=== PATIENT | male | born 1975 | race African-American/Black ===

== ENCOUNTER 2017-06-19 05:13 | Emergency (ER) | payer OTHER ==
[2017-06-19 05:32] VITALS: BP 132/77; PULSE 50; TEMP 97.9; BMI 29.4
--- NOTE | 2017-06-19 06:01 | PDOC ---
History of Present Illness - General Chief Complaint: Chest Pain Stated Complaint: CHEST PAIN Time Seen by Provider: 06/19/17 05:34 - History of Present Illness Initial Comments: 06/19/17 06:00 CHIEF COMPLAINT: left shoulder/arm/chest pain HISTORY OF PRESENT ILLNESS: 41 yo M with no known PMH presents to ED with pain to left arm radiating to shoulder and left chest. 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 Over the next few days, he felt that the pain was extending towards his left chest. He states that the pain was worse when he was moving and "is better today but I have been telling myself I need to come here. I have an appointment with my primary on the , but this has just been bothering me so I wanted to get it checked out." Patient denies any shortness of breath, or palpitations. He reports that the pain feels "more like it's going from my left arm to my chest, not radiating from my chest to my arm." No recent travel or sick contacts. PAST MEDICAL HISTORY: Denies past medical history FAMILY HISTORY: grandmother - [place] SOCIAL HISTORY: Denies tobacco, alcohol, illicit drug use. SURGICAL HISTORY: Denies ALLERGIES: No known drug allergies REVIEW OF SYSTEMS General/Constitutional: Denies fever or chills. Denies weakness, weight change. HEENT: Denies change in vision. Denies ear pain or discharge. Denies sore throat. Cardiovascular: Denies chest pain or shortness of breath. Respiratory: Denies cough, wheezing, or hemoptysis. Gastrointestinal: Denies nausea, vomiting, diarrhea or constipation. Denies rectal bleeding. Genitourinary: Denies dysuria, frequency, or change in urination. Musculoskeletal: Pain to left shoulder and chest, worse with movement. Denies joint or muscle swelling or pain. Denies neck or back pain. Skin: Denies rash or easy bruising. PHYSICAL EXAM General Appearance: Well-appearing, appropriately dressed. No apparent distress , no intoxication. HEENT: EOMI, PERRLA, normal ENT inspection, normal voice, TMs normal, pharynx normal. No conjunctival pallor. No photophobia, scleral icterus. Neck: Supple. Trachea midline. No tenderness, rigidity, carotid bruit, stridor , lymphadenopathy, or thyromegaly. Respiratory/Chest: Lungs CTAB. Cardiovascular: RRR. S1, S2. Vascular Pulses: Dorsalis-Pedis (R): 2+, Dorsalis-Pedis (L): 2+ Musculoskeletal/Extremities: Normal inspection. FROM of all extremities, normal capillary refill. Pelvis Stable. No CVA tenderness. No tenderness to extremities, pedal edema, swelling, erythema or deformity. Integumentary: Appropriate color, dry, warm. 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 Fully oriented, alert. Appropriate mood/affect. Motor strength 5/5. No appreciable EOM palsy, facial droop or sensory deficit. Past History - Past Medical History Allergies/Adverse Reactions: Allergies Allergy/AdvReac Type Severity Reaction Status Date / Time No Known Allergies Allergy Verified 06/19/17 05:30 Home Medications: Ambulatory Orders Ibuprofen 600 mg PO TID #21 tablet 06/19/17 - Psycho/Social/Smoking Cessation Hx Suicidal Ideation: No Smoking History: Current every day smoker Have you smoked in the past 12 months: Yes Number of Cigarettes Smoked Daily: 10 Information on smoking cessation initiated: No Hx Alcohol Use: No Drug/Substance Use Hx: No *Physical Exam - Vital Signs Last Vital Signs Temp Pulse Resp BP Pulse Ox 97.9 F 50 L 14 132/77 96 06/19/17 05:30 06/19/17 05:30 06/19/17 05:30 06/19/17 05:30 06/19/17 05:30 Medical Decision Making - Medical Decision Making 06/19/17 06:10 41 yo M with no known PMH presents to ED with pain to left arm radiating to arm and left chest. -EKG, CXR EKG unremarkable, sinus bradycardia *DC/Admit/Observation/Transfer Diagnosis at time of Disposition: Arm pain, left - Discharge Dispostion Disposition: HOME Condition at time of disposition: Stable Admit: No - Prescriptions Prescriptions: Ibuprofen 600 mg PO TID #21 tablet - Patient Instructions Printed Discharge Instructions: DI for Arm Pain, DI for Shoulder Pain Additional Instructions: Please take medication as prescribed. As discussed, please keep your appointment with your primary care doctor on the . If you experience ANY new chest pain, shortness of breath, palpitations, difficulty breathing, pain radiating to your jaw, or any new or worsening symptoms, please return to the ER.
[2017-06-19] MEDS ORDERED: IBUPROFEN 400 MG TABLET (FP) PO ONE ×2 (06:10→06:21)
--- NOTE | 2017-06-19 06:19 | PDOC ---
*Physical Exam - Vital Signs Last Vital Signs Temp Pulse Resp BP Pulse Ox 97.9 F 50 L 14 132/77 96 06/19/17 05:30 06/19/17 05:30 06/19/17 05:30 06/19/17 05:30 06/19/17 05:30 Medical Decision Making - Medical Decision Making 06/19/17 06:19 agree with care from TIM Kaufman *DC/Admit/Observation/Transfer Diagnosis at time of Disposition: Arm pain, left - Prescriptions Prescriptions: Ibuprofen 600 mg PO TID #21 tablet - Patient Instructions Printed Discharge Instructions: DI for Shoulder Pain, DI for Arm Pain Additional Instructions: Please take medication as prescribed. As discussed, please keep your appointment with your primary care doctor on the . If you experience ANY new chest pain, shortness of breath, palpitations, difficulty breathing, pain radiating to your jaw, or any new or worsening symptoms, please return to the ER. - Post Discharge Activity Work/School Note: Back to Work
--- NOTE | 2017-06-19 12:18 | EKG ---
Test Reason : Blood Pressure : / mmHG Vent. Rate : 050 BPM Atrial Rate : 050 BPM P-R Int : 138 ms QRS Dur : 096 ms QT Int : 448 ms P-R-T Axes : 021 011 012 degrees QTc Int : 408 ms SINUS BRADYCARDIA OTHERWISE NORMAL ECG NO PREVIOUS ECGS AVAILABLE Confirmed by GONZALO JOHNSON MD ([id number]) on 06/19/2017 12:17:53 PM Referred By: Confirmed By:GONZALO JOHNSON MD
== END 2017-06-19 06:31 | disposition home or self-care (01) ==
LOC: JER 05:13
DX: M79.602 Pain in left arm (principal); F17.210 Nicotine dependence, cigarettes, uncomplicated
CPT/HCPCS: 71020-TC; 93005; 93010; 99283-25

== ENCOUNTER 2017-11-06 13:30 | Emergency (ER) | payer OTHER ==
[2017-11-06 13:35] VITALS: TEMP 97.6; BMI 29.5
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
[2017-11-06] MEDS ORDERED: morphine CARPU-JECT 2 MG/1 ML DISP.SYRIN IVPUSH ONE (15:12)
[2017-11-06] MEDS ORDERED: morphine CARPU-JECT 2 MG/1 ML DISP.SYRIN ONE (15:15)
[2017-11-06 15:47] LABS: URINE APPEARANCE CLEAR; URINE BILIRUBIN NEGATIVE (NEGATIVE); URINE BLOOD NEGATIVE (NEGATIVE); URINE COLOR LTYELLOW; URINE GLUCOSE (UA) NEGATIVE (NEGATIVE); URINE KETONE NEGATIVE (NEGATIVE); URINE LEUK ESTERASE NEGATIVE (NEGATIVE); URINE NITRITE NEGATIVE (NEGATIVE); URINE PROTEIN NEGATIVE (NEGATIVE); URINE UROBILINOGEN NEGATIVE mg/dL (0.2-1.0)
[2017-11-06 15:51] LABS: BASO % 0.5 % (0-2.0); EOS % 1.9 % (0-4.5); HEMATOCRIT 43.9 % (35.4-49); HEMOGLOBIN 15.3 GM/dL (11.7-16.9); LYMPH % 21.7 % (8-40); MCH 29.1 pg (25.7-33.7); MCHC 34.9 g/dl (32.0-35.9); MEAN CELL VOLUME 83.4 fl (80-96); MEAN PLT VOLUME 10.9 fl (7.5-11.1); MONO % 7.6 % (3.8-10.2); NEUT % 68.3 % (42.8-82.8); PLATELET COUNT 149 K/MM3 (134-434); RBC 5.26 M/mm3 (4.00-5.60); RDW 13.5 % (11.9-15.9); WHITE BLOOD COUNT 9.5 K/mm3 (4.0-10.0)
[2017-11-06 15:56] LABS: ALBUMIN 3.8 g/dl (3.4-5.0); ANION GAP 8 (8-16); BILIRUBIN,TOTAL 0.3 mg/dL (0.2-1.0); BLOOD UREA NITROGEN 18 mg/dL (7-18); CALCIUM 8.6 mg/dL (8.5-10.1); CHLORIDE 106 mmol/L (98-107); CO2 29 mmol/L (21-32); CREATININE 1.5 mg/dL (0.7-1.3); GLUCOSE,RANDOM 81 mg/dL (74-106); POTASSIUM 4.1 mmol/L (3.5-5.1); SGOT/AST 21 U/L (15-37); SGPT/ALT 35 U/L (12-78); SODIUM 143 mmol/L (136-145); TOT PROT 7.7 g/dl (6.4-8.2)
[2017-11-06 15:57] LABS: ALK PHOS 94 U/L (45-117)
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
[2017-11-06 17:12] VITALS: BP 117/59; PULSE 56
== END 2017-11-06 17:35 | disposition home or self-care (01) ==
LOC: JER 13:30
PROC: 3E033NZ Introduction of Analgesics, Hypnotics, Sedatives into Peripheral Vein, Percutaneous Approach (ICD-10-PCS; principal; 2017-11-06)
DX: S87.82XA Crushing injury of left lower leg, initial encounter (principal); V03.00XA Pedestrian on foot injured in collision with car, pick-up truck or van in nontraffic accident, initial encounter; Y92.481 Parking lot as the place of occurrence of the external cause; Y93.89 Activity, other specified; Y99.8 Other external cause status
CPT/HCPCS: 36415; 73590-TC-LT; 80053; 81003; 82550; 82553; 85025; 99283-25

== ENCOUNTER 2018-03-27 23:57 | Emergency (ER) | payer OTHER ==
[2018-03-28 01:42] VITALS: BP 114/78; PULSE 61; TEMP 98.7; BMI 29.5
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
[2018-03-28] MEDS ORDERED: diazePAM 5 MG TABLET PO ONE (02:00)
[2018-03-28] MEDS ORDERED: METOCLOPRAMIDE HCL INJECTION 10 MG/2 ML VIAL IVPUSH ONE (02:00)
[2018-03-28] MEDS ORDERED: ACETAMINOPHEN 325 MG TABLET (FP) PO ONE (02:00)
[2018-03-28] MEDS ORDERED: SODIUM CHLORIDE 1,000 ML IV STA (02:00)
[2018-03-28] MEDS ORDERED: diazePAM 5 MG TABLET ONE (02:19)
[2018-03-28] MEDS ORDERED: ACETAMINOPHEN 325 MG TABLET (FP) ONE (02:19)
[2018-03-28] MEDS ORDERED: METOCLOPRAMIDE HCL INJECTION 10 MG/2 ML VIAL ONE (02:19)
[2018-03-28 02:54] LABS: BASO % 0.5 % (0-2.0); HEMATOCRIT 41.1 % (35.4-49); HEMOGLOBIN 14.4 GM/dL (11.7-16.9); MCH 29.3 pg (25.7-33.7); MEAN CELL VOLUME 83.7 fl (80-96); MEAN PLT VOLUME 10.2 fl (7.5-11.1); MONO % 6.4 % (3.8-10.2); NEUT % 49.1 % (42.8-82.8); PLATELET COUNT 165 K/MM3 (134-434); RBC 4.91 M/mm3 (4.00-5.60); RDW 13.3 % (11.9-15.9)
[2018-03-28 03:18] LABS: ANION GAP 5 (8-16); BLOOD UREA NITROGEN 17 mg/dL (7-18); CALCIUM 8.4 mg/dL (8.5-10.1); CHLORIDE 107 mmol/L (98-107); CO2 29 mmol/L (21-32); CREATININE 1.3 mg/dL (0.7-1.3); GLUCOSE,RANDOM 85 mg/dL (74-106); SODIUM 141 mmol/L (136-145)
[2018-03-28 03:21] LABS: POTASSIUM 4.1 mmol/L (3.5-5.1)
--- NOTE | 2018-03-28 04:17 | PDOC ---
*Physical Exam - Vital Signs Last Vital Signs Temp Pulse Resp BP Pulse Ox 98.7 F 61 18 114/78 99 03/28/18 01:37 03/28/18 01:37 03/28/18 01:37 03/28/18 01:37 03/28/18 01:37 ED Treatment Course - LABORATORY CBC & Chemistry Diagram: 03/28/18 02:40 03/28/18 02:40 - ADDITIONAL ORDERS Additional order review: Laboratory Results 03/28/18 02:40 Sodium 141 Potassium 4.1 Chloride 107 Carbon Dioxide 29 Anion Gap 5 L BUN 17 Creatinine 1.3 Creat Clearance w eGFR 59.97 Random Glucose 85 Calcium 8.4 L 03/28/18 02:40 RBC 4.91 MCV 83.7 MCHC 35.0 RDW 13.3 MPV 10.2 Neutrophils % 49.1 D Lymphocytes % 40.0 D Monocytes % 6.4 Eosinophils % 4.0 D Basophils % 0.5 - Medications Given in the ED: ED Medications Discontinued Medications Generic Name Dose Route Start Last Admin Trade Name Richardq PRN Reason Stop Dose Admin Acetaminophen 650 mg 03/28/18 02:00 03/28/18 02:33 Tylenol - PO 03/28/18 02:01 650 mg ONCE ONE Administration Diazepam 5 mg 03/28/18 02:00 03/28/18 02:33 Valium - PO 03/28/18 02:01 5 mg ONCE ONE Administration Sodium Chloride 1,000 mls @ 1,000 mls/hr 03/28/18 02:00 03/28/18 02:33 Normal Saline - IV 03/28/18 02:59 1,000 mls/hr ASDIR STA Administration Metoclopramide HCl 10 mg 03/28/18 02:00 03/28/18 02:33 Reglan Injection - IVPUSH 03/28/18 02:01 10 mg ONCE ONE Administration Medical Decision Making - Medical Decision Making 03/28/18 03:59 I received this patient on sign out He presented to the ER with a complaint of occipital headache which radiated to the jaw 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, 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, 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 fever or chills Laboratory Tests 03/28/18 03/28/18 02:40 02:40 WBC 8.0 Hgb 14.4 Hct 41.1 Plt Count 165 Neutrophils % 49.1 D Lymphocytes % 40.0 D Sodium 141 Potassium 4.1 Chloride 107 Carbon Dioxide 29 BUN 17 Creatinine 1.3 Random Glucose 85 03/28/18 04:17 Pt sleeping soundly when awoken, pt states that he feels much better Headache resolved Will discharge to home Follow up with PMD within 2-3 days Clinical Impression: tension type headache, initial presentation *DC/Admit/Observation/Transfer Diagnosis at time of Disposition: Headache Qualifiers: Headache type: tension-type Headache chronicity pattern: unspecified pattern Intractability: not intractable Qualified Code(s): G44.209 - Tension-type headache, unspecified, not intractable - Discharge Dispostion Disposition: HOME Condition at time of disposition: Stable Decision to Admit order: No - Referrals - Patient Instructions Printed Discharge Instructions: DI for Headache, Tension Headache, Tension Headache (Alternative Therapy) Additional Instructions: Mr Menon Thank you for coming in to the ER today Please be sure to follow up with your primary care physician within 2-3 days Please use motrin if needed for mild pain For more severe pain, please take Excedrin Migraine according to the power and recovery supervisor's recommendation Monitor for fevers or chills or any other concerning symptoms If you have any concerns or complaints, please return to the ER for re evaluation - Post Discharge Activity
== END 2018-03-28 04:49 | disposition home or self-care (01) ==
LOC: JER 23:57
PROC: 3E033GC Introduction of Other Therapeutic Substance into Peripheral Vein, Percutaneous Approach (ICD-10-PCS; principal; 2018-03-27)
DX: G44.209 Tension-type headache, unspecified, not intractable (principal)
CPT/HCPCS: 36415; 80048; 85025; 99281-25; J7030

== ENCOUNTER 2018-04-10 15:27 | Emergency (ER) | payer SELFPAY ==
[2018-04-10 15:46] VITALS: BP 139/75; PULSE 71; TEMP 101.6; BMI 28.7
--- NOTE | 2018-04-10 15:46 | PDOC ---
Rapid Medical Evaluation Time Seen by Provider: 04/10/18 15:41 Medical Evaluation: Allergies Allergy/AdvReac Type Severity Reaction Status Date / Time No Known Allergies Allergy Verified 03/28/18 01:39 I have performed a brief in-person evaluation of this patient. The patient presents with a chief complaint of: Cough, SOB x 3 days. No orthopnea Pertinent physical exam findings: fever I have ordered the following: tylenol, CXR The patient will proceed to the ED for further evaluation. Discharge Disposition - Diagnosis Cough, Fever - Referrals - Patient Instructions - Post Discharge Activity
[2018-04-10] MEDS ORDERED: ACETAMINOPHEN 325 MG TABLET (FP) PO ONE (15:47)
--- NOTE | 2018-04-10 16:09 | PDOC ---
History of Present Illness - General Chief Complaint: Respiratory Stated Complaint: SOB Time Seen by Provider: 04/10/18 15:41 History Source: Patient Exam Limitations: No Limitations - History of Present Illness Initial Comments: 04/10/18 16:39 Patient came for evaluation of persistent cough with white thick phlegm. States had fever over the past few days with MAXIMUM TEMPERATURE today of 102. States has become short of breath with exertion past 2 days with exacerbating cough. Timing/Duration: reports: constant, getting worse Associated Symptoms: reports: chest pain/soreness, cough, fever/chills, lightheadedness, nasal congestion Past History - Travel Traveled outside of the country in the last 30 days: No Close contact w/someone who was outside of country & ill: No - Past Medical History Allergies/Adverse Reactions: Allergies Allergy/AdvReac Type Severity Reaction Status Date / Time No Known Allergies Allergy Verified 04/10/18 15:41 Home Medications: Ambulatory Orders Azithromycin [Zithromax -] 250 mg PO UTDICT #6 tab 04/10/18 COPD: No Other medical history: DENIES. - Immunization History Immunization Up to Date: Yes - Suicide/Smoking/Psychosocial Hx Smoking History: Current every day smoker Have you smoked in the past 12 months: Yes Number of Cigarettes Smoked Daily: 8 Information on smoking cessation initiated: No Hx Alcohol Use: Yes Drug/Substance Use Hx: No Substance Use Type: None Review of Systems - Review of Systems Able to Perform ROS?: Yes Is the patient limited Urdu proficient: Yes Constitutional: Yes: Symptoms Reported, See HPI, Malaise Respiratory: Yes: Symptoms reported, See HPI, Cough, Orthopnea. No: Wheezing Cardiac (ROS): No: Symptoms Reported Musculoskeletal: Yes: Symptoms Reported, See HPI, Muscle Weakness All Other Systems: Reviewed and Negative *Physical Exam - Vital Signs Last Vital Signs Temp Pulse Resp BP Pulse Ox 101.6 F H 71 19 139/75 96 04/10/18 15:41 04/10/18 15:41 04/10/18 15:41 04/10/18 15:41 04/10/18 15:41 - Physical Exam General Appearance: Yes: Nourished, Appropriately Dressed, Apparent Distress, Mild Distress HEENT: positive: RAE, TMs Normal, Pharynx Normal, Rhinorrhea Neck: positive: Supple. negative: Tender, Lymphadenopathy (R), Lymphadenopathy (L) Respiratory/Chest: positive: Lungs Clear (course but clear, no wheezing or retractions noted), Normal Breath Sounds Gastrointestinal/Abdominal: positive: Soft. negative: Tender Musculoskeletal: positive: Normal Inspection. 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 We'll treat with Zithromax for bronchitis and palpation follow-up with PMD on Friday *DC/Admit/Observation/Transfer Diagnosis at time of Disposition: Bronchitis - Discharge Dispostion Disposition: HOME Condition at time of disposition: Stable Decision to Admit order: No - Prescriptions Prescriptions: Azithromycin [Zithromax -] 250 mg PO UTDICT #6 tab - Referrals - Patient Instructions Printed Discharge Instructions: DI for Acute Bronchitis Additional Instructions: Rest, drink lots of fluids: Teas, water, soups, Pedialyte Saltwater gargles Steamy showers/seem to face break up mucus Avoid contact with others until fevers and cough resolved Lots of handwashing and good hygiene Continue [id number] medications for symptomatic relief Tylenol or Motrin for fever and pain Azithromycin as directed Followup with private physician in one to 2 days as needed Return to emergency department for worsened symptoms, fevers, dehydration - Post Discharge Activity
--- NOTE | 2018-04-20 15:06 | EKG ---
Test Reason : Blood Pressure : / mmHG Vent. Rate : 058 BPM Atrial Rate : 058 BPM P-R Int : 148 ms QRS Dur : 092 ms QT Int : 428 ms P-R-T Axes : -17 011 014 degrees QTc Int : 420 ms SINUS BRADYCARDIA NORMAL ECG WHEN COMPARED WITH ECG OF 10-APR-2018 23:18, NO SIGNIFICANT CHANGE WAS FOUND Confirmed by GLORIA LEMON MD ([id number]) on 04/20/2018 3:05:27 PM Referred By: Confirmed By:GLORIA LEMON MD
== END 2018-04-10 16:48 | disposition home or self-care (01) ==
LOC: JERFT 15:27
DX: J20.9 Acute bronchitis, unspecified (principal); F17.210 Nicotine dependence, cigarettes, uncomplicated
CPT/HCPCS: 71045-TC-FY; 93005; 93010; 99281-25

== ENCOUNTER 2018-05-02 10:38 | Observation (INO) | payer MEDICARE ==
--- NOTE | 2018-05-02 13:16 | PDOC ---
Attending Attestation - Resident Resident Name: Estuardo Rosales - ED Attending Attestation I have performed the following: I have examined & evaluated the patient, The case was reviewed & discussed with the resident, I agree w/resident's findings & plan, Exceptions are as noted - HPI HPI: 05/02/18 13:14 42y M hx of arhtorscopy last in january,, presents with L foot and ankle swelling/pain since this morning. Pt states he intermittently has swelling in his L foot, but it was worse than usual today. He denies any trauma, falls, leg pain, sob, cough, hemopsysis, chest pain, fever/chills. on exam pt in no distress LLE: +pitting edema to lewis /foot, neg homans, no calf tenderness ABD: soft, nontender pulm: no distress, speaking complete sentences, no wheezing/rales card: rrr, no m/r/g suspect post traumatic edema will r/o dvt with US will obtai blood work to r/o amado, liver failure anticipate dc with pmd fu if his US is negative with supportive care/elevation - Physicial Exam PE: 05/03/18 09:23 see above - Medical Decision Making 05/02/18 17:50 pts labs noted with cr at 1.4, aboe his last one that was 1.1 at discharge pts DVT study was positive will start pt on eliquis will hydrate to ensure his renal function returns to baseline 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 Admitting physician has assumed care for the patient, will follow all pending diagnostics and will complete the evaluation and treatment.
--- NOTE | 2018-05-02 13:23 | PDOC ---
History of Present Illness - General Chief Complaint: Edema Stated Complaint: LT SWOLLEN LEG Time Seen by Provider: 05/02/18 11:17 History Source: Patient Exam Limitations: No Limitations - History of Present Illness Initial Comments: 05/02/18 13:18 42 yo male pmh significant for 2 arthroscopys (most recent one in January) and a recent inpatient hospital stay for pneumonia 3 weeks ago presents to ED for left foot and ankle swelling. Patient states he had to wear a slipper on the the left foot due to how swollen it was. Patient took 800mg of Ibuprofen has had improvement in his pain. Currently no pain in the foot. He denies any history of trauma to the foot and denies f/c/n/v, weakness or sensory changes unilaterally, chest pain, SOB or abdominal pain. Past History - Past Medical History Allergies/Adverse Reactions: Allergies Allergy/AdvReac Type Severity Reaction Status Date / Time No Known Allergies Allergy Verified 05/02/18 11:03 Home Medications: Ambulatory Orders Ibuprofen 1,600 mg PO PRN 05/02/18 COPD: No - Immunization History Immunization Up to Date: Yes - Suicide/Smoking/Psychosocial Hx Smoking History: Former smoker Have you smoked in the past 12 months: Yes Number of Cigarettes Smoked Daily: 8 If you are a former smoker, when did you quit?: 03/2018 Information on smoking cessation initiated: No Hx Alcohol Use: No Drug/Substance Use Hx: No Substance Use Type: None Review of Systems - Review of Systems Able to Perform ROS?: Yes Constitutional: No: Chills, Diaphoresis, Fever, Weakness Respiratory: No: Shortness of Breath, SOB with Exertion, SOB at Rest, Wheezing, Productive cough Cardiac (ROS): No: Chest Pain, Irregular Heart Rate, Lightheadedness, Palpitations, Chest Tightness ABD/GI: No: Abdominal Distended, Constipated, Diarrhea, Nausea, Vomiting Musculoskeletal: Yes: Joint Swelling (left ankle and foot) Integumentary: No: Bruising, Change in Color, Erythema, Lesions *Physical Exam - Vital Signs Last Vital Signs Temp Pulse Resp BP Pulse Ox 98.7 F 57 L 16 147/78 97 05/02/18 11:03 05/02/18 11:03 05/02/18 11:03 05/02/18 11:03 05/02/18 11:03 - Physical Exam General Appearance: Yes: Appropriately Dressed. No: Apparent Distress HEENT: positive: EOMI Neck: negative: Tender, Carotid bruit Respiratory/Chest: positive: Lungs Clear, Normal Breath Sounds. negative: Chest Tender, Respiratory Distress, Accessory Muscle Use, Decreased Breath Sounds, Crackles, Rales, Rhonchi, Stridor, Wheezing Cardiovascular: positive: Regular Rhythm, Regular Rate, S1, S2, Edema (left lower leg and foot pitting). negative: JVD, Murmur, Tachycardia Vascular Pulses: Dorsalis-Pedis (R): 4+, Doralis-Pedis (L): 4+ Gastrointestinal/Abdominal: positive: Normal Bowel Sounds. negative: Pulsatile Mass, Distended, Guarding, Rebound, Tenderness Musculoskeletal: negative: Muscle Spasm Extremity: positive: Normal Capillary Refill, Pedal Edema (left lower leg and foot). negative: Tender, Cyanosis, Calf Tenderness, Erythema Integumentary: positive: Normal Color, Dry, Warm. negative: Erythema, Diaphoresis Neurologic: positive: pharmacy ancillary II-XII NML intact, Fully Oriented, Alert, Normal Mood/ Affect, Normal Response, Motor Strength 02/14 ED Treatment Course - LABORATORY CBC & Chemistry Diagram: 05/02/18 13:45 05/02/18 13:45 - RADIOLOGY Radiology Studies Ordered: Category Date Time Status ANKLE & FOOT-LEFT* [RAD] Stat Radiology 05/02/18 13:13 Ordered Medical Decision Making - Medical Decision Making 05/02/18 14:02 42 yo male pmh of 2 knee arthroscopys and a recent admission for pneumonia presents to the ED for left lower leg and foot swelling. Patient admits to having mild swelling yesterday but this morning it became severe. He denies CP, SOB or calf tenderness. On exam, 2+ pitting edema in the left lower leg and foot with a negative homans sign. Left lower leg noticeably more swollen than the right. No redness, warmth or induration. Rule out DVT with duplex 05/02/18 17:40 Doppler positive for DVT distal to the left superficial femoral vein with minimal flow distal of the pop vein. Concerns for starting Eliquis due to bump in creatinine from 1.1 to 1.4 Admit to Obs for dehydration/ASIM/DVT and start Eliquis *DC/Admit/Observation/Transfer Diagnosis at time of Disposition: DVT (deep venous thrombosis) Qualifiers: DVT location: lower extremity Affected thrombotic vein of extremity: femoral Chronicity: acute Laterality: left Qualified Code(s): I82.412 - Acute embolism and thrombosis of left femoral vein - Discharge Dispostion Condition at time of disposition: Stable Decision to Admit order: Yes - Referrals - Patient Instructions - Post Discharge Activity
[2018-05-02 14:00] LABS: BASO % 0.7 % (0-2.0); EOS % 3.5 % (0-4.5); HEMATOCRIT 41.3 % (35.4-49); HEMOGLOBIN 14.5 GM/dL (11.7-16.9); LYMPH % 33.7 % (8-40); MCH 29.4 pg (25.7-33.7); MCHC 35.2 g/dl (32.0-35.9); MEAN CELL VOLUME 83.7 fl (80-96); MEAN PLT VOLUME 9.4 fl (7.5-11.1); MONO % 6.4 % (3.8-10.2); NEUT % 55.7 % (42.8-82.8); PLATELET COUNT 203 K/MM3 (134-434); RBC 4.93 M/mm3 (4.00-5.60); RDW 13.9 % (11.9-15.9); WHITE BLOOD COUNT 7.2 K/mm3 (4.0-10.0)
[2018-05-02 14:30] LABS: ALBUMIN 3.6 g/dl (3.4-5.0); ANION GAP 4 (8-16); BILIRUBIN,TOTAL 0.5 mg/dL (0.2-1.0); BLOOD UREA NITROGEN 13 mg/dL (7-18); CALCIUM 8.6 mg/dL (8.5-10.1); CHLORIDE 108 mmol/L (98-107); CO2 30 mmol/L (21-32); CREATININE 1.4 mg/dL (0.7-1.3); GLUCOSE,RANDOM 76 mg/dL (74-106); POTASSIUM 4.2 mmol/L (3.5-5.1); SGOT/AST 21 U/L (15-37); SGPT/ALT 30 U/L (12-78); SODIUM 142 mmol/L (136-145); TOT PROT 7.1 g/dl (6.4-8.2)
[2018-05-02 14:31] LABS: ALK PHOS 85 U/L (45-117)
[2018-05-02] MEDS ORDERED: SODIUM CHLORIDE 1,000 ML IV STA (17:50)
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
[2018-05-02] MEDS ORDERED: SODIUM CHLORIDE 1,000 ML IV SCH (18:30)
[2018-05-02] MEDS ORDERED: APIXABAN 5 MG TABLET PO SCH (22:00)
[2018-05-02] MEDS: APIXABAN 5 MG TABLET PO SCH (22:19)
[2018-05-03 00:29] LABS: URINE APPEARANCE CLEAR; URINE BILIRUBIN NEGATIVE (<2.0 mg/dL); URINE COLOR STRAW; URINE GLUCOSE (UA) NEGATIVE (NEGATIVE); URINE KETONE NEGATIVE (NEGATIVE); URINE LEUK ESTERASE NEGATIVE (NEGATIVE); URINE NITRITE NEGATIVE (NEGATIVE); URINE PROTEIN NEGATIVE (NEGATIVE); URINE UROBILINOGEN NEGATIVE mg/dL (0.2-1.0)
[2018-05-03 04:16] VITALS: BMI 30.1
[2018-05-03 08:00] LABS: EOS % 3.4 % (0-4.5); HEMATOCRIT 40.9 % (35.4-49); HEMOGLOBIN 14.2 GM/dL (11.7-16.9); LYMPH % 35.5 % (8-40); MCH 29.4 pg (25.7-33.7); MCHC 34.8 g/dl (32.0-35.9); MEAN CELL VOLUME 84.6 fl (80-96); MEAN PLT VOLUME 10.2 fl (7.5-11.1); MONO % 6.1 % (3.8-10.2); PLATELET COUNT 175 K/MM3 (134-434); RBC 4.84 M/mm3 (4.00-5.60); RDW 13.7 % (11.9-15.9); WHITE BLOOD COUNT 6.8 K/mm3 (4.0-10.0)
[2018-05-03] MEDS: APIXABAN 5 MG TABLET PO SCH (10:41)
[2018-05-03 12:02] LABS: ALBUMIN 3.2 g/dl (3.4-5.0); ANION GAP 8 (8-16); BLOOD UREA NITROGEN 9 mg/dL (7-18); CALCIUM 8.4 mg/dL (8.5-10.1); CHLORIDE 108 mmol/L (98-107); CO2 25 mmol/L (21-32); GLUCOSE,RANDOM 78 mg/dL (74-106); POTASSIUM 4.2 mmol/L (3.5-5.1); SODIUM 141 mmol/L (136-145)
[2018-05-03 12:07] LABS: ALK PHOS 74 U/L (45-117); BILIRUBIN,TOTAL 0.7 mg/dL (0.2-1.0); CREATININE 1.2 mg/dL (0.7-1.3); SGOT/AST 19 U/L (15-37); SGPT/ALT 26 U/L (12-78); TOT PROT 6.5 g/dl (6.4-8.2)
[2018-05-03 13:52] VITALS: BP 120/66; PULSE 50; TEMP 98.9
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
== END 2018-05-03 14:51 | disposition home or self-care (01) ==
LOC: JER 10:38 → JERBED 17:54 → J8W 21:49
PROVIDERS: ADMIT Hospitalist; ATTEND Nurse Practitioner Acute Care
PROC: 3E0337Z Introduction of Electrolytic and Water Balance Substance into Peripheral Vein, Percutaneous Approach (ICD-10-PCS; principal; 2018-05-02)
DX: I82.412 Acute embolism and thrombosis of left femoral vein (principal); N17.9 Acute kidney failure, unspecified; Z87.891 Personal history of nicotine dependence
CPT/HCPCS: 36415; 80053; 81003; 85025; 93971-TC; 96360; 99284-25; G0378; J7030

== ENCOUNTER 2018-06-07 20:23 | Emergency (ER) | payer OTHER ==
[2018-06-07 20:34] VITALS: TEMP 98.7; BMI 28.7
--- NOTE | 2018-06-07 21:40 | PDOC ---
History of Present Illness - General Chief Complaint: Edema Stated Complaint: SWOLLEN LEG - History of Present Illness Initial Comments: 42-year-old male presents for evaluation of atraumatic left lower leg swelling 2 days. He states he was on Elkus for a DVT in the left lower extremity finished 3 out of 4 week course of it never got refills and his leg began to swell again. Incidentally he is on antibiotics for a tooth infection he has no other comorbidities. 06/07/18 21:39 Past History - Past Medical History Allergies/Adverse Reactions: Allergies Allergy/AdvReac Type Severity Reaction Status Date / Time No Known Allergies Allergy Verified 06/07/18 20:31 Home Medications: Ambulatory Orders Amoxicillin - [Amoxicillin 500mg Capsule -] 500 mg PO TID 06/07/18 COPD: No Other medical history: DVT - Immunization History Immunization Up to Date: Yes - Suicide/Smoking/Psychosocial Hx Smoking History: Former smoker Have you smoked in the past 12 months: Yes Number of Cigarettes Smoked Daily: 8 If you are a former smoker, when did you quit?: 03/2018 Information on smoking cessation initiated: No Hx Alcohol Use: No Drug/Substance Use Hx: Yes Substance Use Type: None Review of Systems - Review of Systems Musculoskeletal: Yes: See HPI *Physical Exam - Vital Signs Last Vital Signs Temp Pulse Resp BP Pulse Ox 98.7 F 53 L 18 111/67 97 06/07/18 20:32 06/07/18 20:32 06/07/18 20:32 06/07/18 20:32 06/07/18 20:32 - Physical Exam Comments: Left lower leg skin color and temperature are normal there is 1-2+ pitting edema about the anterior left lower leg the thigh and calf there soft and nontender there are no gross sensorimotor deficits neurovascularly intact 06/07/18 21:39 ED Treatment Course - RADIOLOGY Radiology Studies Ordered: Category Date Time Status LOWER EXT ART DOPP/PVR [VASC] Stat Vascular 06/07/18 21:38 Ordered Medical Decision Making - Medical Decision Making 42-year-old male with a history of a DVT he did not complete a course of L quest as he was prescribed, color Doppler today to evaluate him for DVT 06/07/18 21:40 06/07/18 22:15 + DVT as per US hematology called 06/07/18 22:24 DIscussed with hematology in consult, and 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 Preliminalry lab work ordered, pt sent to main ER. *DC/Admit/Observation/Transfer Diagnosis at time of Disposition: DVT (deep venous thrombosis) - Referrals - Patient Instructions - Post Discharge Activity
[2018-06-07] MEDS ORDERED: ENOXAPARIN NA (PORCINE) 40 MG/0.4 ML DISP.SYRIN SQ ONE ×2 (22:29→22:47)
[2018-06-07 22:50] LABS: BASO % 0.6 % (0-2.0); EOS % 4.1 % (0-4.5); HEMATOCRIT 40.7 % (35.4-49); LYMPH % 38.5 % (8-40); MCH 29.1 pg (25.7-33.7); MCHC 34.5 g/dl (32.0-35.9); MEAN CELL VOLUME 84.4 fl (80-96); MEAN PLT VOLUME 10.2 fl (7.5-11.1); MONO % 7.5 % (3.8-10.2); NEUT % 49.3 % (42.8-82.8); PLATELET COUNT 170 K/MM3 (134-434); RBC 4.83 M/mm3 (4.00-5.60); RDW 13.9 % (11.9-15.9); WHITE BLOOD COUNT 8.2 K/mm3 (4.0-10.0)
[2018-06-07 23:03] LABS: INR 1.15 (0.83-1.09)
[2018-06-07 23:11] LABS: ALBUMIN 3.8 g/dl (3.4-5.0); ANION GAP 6 MMOL/L (8-16); BILIRUBIN,TOTAL 0.3 mg/dL (0.2-1.0); BLOOD UREA NITROGEN 17 mg/dL (7-18); CALCIUM 8.7 mg/dL (8.5-10.1); CHLORIDE 108 mmol/L (98-107); CO2 31 mmol/L (21-32); CREATININE 1.3 mg/dL (0.7-1.3); GLUCOSE,RANDOM 87 mg/dL (74-106); POTASSIUM 4.2 mmol/L (3.5-5.1); SGOT/AST 19 U/L (15-37); SGPT/ALT 30 U/L (12-78); SODIUM 145 mmol/L (136-145); TOT PROT 7.3 g/dl (6.4-8.2)
[2018-06-07 23:12] LABS: ALK PHOS 90 U/L (45-117)
--- NOTE | 2018-06-07 23:51 | PDOC ---
*Physical Exam - Vital Signs Last Vital Signs Temp Pulse Resp BP Pulse Ox 98.7 F 53 L 18 111/67 97 06/07/18 20:32 06/07/18 20:32 06/07/18 20:32 06/07/18 20:32 06/07/18 20:32 ED Treatment Course - LABORATORY CBC & Chemistry Diagram: 06/07/18 22:43 06/07/18 22:43 - ADDITIONAL ORDERS Additional order review: Laboratory Results 06/07/18 06/07/18 22:43 22:43 PT with INR 13.00 INR 1.15 H Sodium 145 Potassium 4.2 Chloride 108 H Carbon Dioxide 31 D Anion Gap 6 L BUN 17 Creatinine 1.3 Creat Clearance w eGFR 59.97 Random Glucose 87 Calcium 8.7 Total Bilirubin 0.3 AST 19 ALT 30 Alkaline Phosphatase 90 Total Protein 7.3 Albumin 3.8 06/07/18 22:43 RBC 4.83 MCV 84.4 MCHC 34.5 RDW 13.9 MPV 10.2 Neutrophils % 49.3 Lymphocytes % 38.5 Monocytes % 7.5 Eosinophils % 4.1 Basophils % 0.6 - Medications Given in the ED: ED Medications Discontinued Medications Generic Name Dose Route Start Last Admin Trade Name Freq PRN Reason Stop Dose Admin Enoxaparin Sodium 40 mg 06/07/18 22:29 06/07/18 22:57 Lovenox - SQ 06/07/18 22:30 40 mg ONCE ONE Administration Medical Decision Making - Medical Decision Making 06/07/18 23:49 Patient endorsed to me to follow labs and have patient admitted for DVT. Lovenox was given. 06/07/18 23:50 Labs noted there are no acute findings labs noted there are new no acute findings Ultrasound noted below Patient Full Name: OZZY COLLINS Patient Accession No: [id number] Patient : 1975 Reason for Exam: r/o dvt Referring Physician: TERESSA HOLMAN Patient Name: KARINA PRECIADO THIS IS A PRELIMINARY REPORT FROM [facility] [employer] [facility]ESS[facility] DATE OF SERVICE: 2018-06-07 21:45:40 IMAGES: 21 Exam: Left lower extremity venous Doppler sonogram. Clinical indication: Left leg swelling. Rule out DVT. Findings There is normal compression, augmentation, and spontaneous color Doppler flow demonstrated from the left proximal popliteal vein through to the left common femoral vein inclusive. However, within the distal aspect of the left popliteal vein there is some occlusive thrombus or almost occlusive thrombus. Impression: There is a small amount of occlusive thrombus within the left popliteal vein. THIS DOCUMENT HAS BEEN ELECTRONICALLY SIGNED Peter Haddad MD 06/07/2018 21:19 BARBARA MBrisa. Please call Imaging Shuttle Driver [phone] ([phone]) with questions. INTERPRETING RADIOLOGIST: Peter Haddad MD Electronically Signed: Jun 07, 2018 10:21PM EDT Page hospitalist for admission spoke with patient states he ran out of medications 1 week 06/08/18 00:34 Patient was seen by hospitalist Dr. Martinez who states that the patient does not meet criteria for admission. Patient has an appointment with his traffic and transport planner on 06/10/18 and has already had all the blood workup done. She recommended that the patient be discharged to see his traffic and transport planner. Patient also had already has a prescription for Eliquis in the pharmacy. 06/08/18 01:21 Patient's EKG done noted to have a heart rate of 38-40. Patient states that he was told in the past that his heart rate was slow however has not pursued it. Denies any chest pain, shortness of breath, weakness, dizziness. Review of the chart notes that patient has bradycardia on prior visits. We will discharge and instructed patient to follow up with cardiology, copy given *DC/Admit/Observation/Transfer Diagnosis at time of Disposition: Bradycardia DVT (deep venous thrombosis) Qualifiers: DVT location: lower extremity Affected thrombotic vein of extremity: popliteal Chronicity: unspecified Laterality: unspecified laterality Qualified Code(s): I82.439 - Acute embolism and thrombosis of unspecified popliteal vein - Discharge Dispostion Disposition: HOME Condition at time of disposition: Stable - Prescriptions Prescriptions: Apixaban [Eliquis] 5 mg PO BID #30 tablet - Referrals - Patient Instructions Printed Discharge Instructions: DI for Deep Vein Thrombosis Additional Instructions: Your Discharge Instructions: You must call primary care physician within 24 hours to arrange follow-up. Return to the Emergency Department with any new, persistent or worsening symptoms, for fever, chills, SOB, dizziness or any other concerning changes that may occur. You must follow-up with her traffic and transport planner and is scheduled appointment for 06/10/18. You must restart and take your Eloquis in 24 hours. It was noted on her EKG that to have bradycardia. You must seek cardiology in one to 2 days. Return to the emergency room for worsening symptoms. - Post Discharge Activity Forms/Work/School Notes: Back to Work
[2018-06-08 01:10] VITALS: BP 116/62; PULSE 42
--- NOTE | 2018-06-08 10:19 | EKG ---
Test Reason : Blood Pressure : / mmHG Vent. Rate : 038 BPM Atrial Rate : 038 BPM P-R Int : 136 ms QRS Dur : 096 ms QT Int : 506 ms P-R-T Axes : 014 022 031 degrees QTc Int : 402 ms MARKED SINUS BRADYCARDIA ABNORMAL ECG WHEN COMPARED WITH ECG OF 12-APR-2018 15:04, VENT. RATE HAS DECREASED BY 18 BPM Confirmed by MELISSA GOMEZ MD ([id number]) on 06/08/2018 10:18:54 AM Referred By: Confirmed By:MELISSA GOMEZ MD
== END 2018-06-08 01:33 | disposition home or self-care (01) ==
LOC: JERFT 20:23 → JER 20:23
PROC: 3E013GC Introduction of Other Therapeutic Substance into Subcutaneous Tissue, Percutaneous Approach (ICD-10-PCS; principal; 2018-06-07)
DX: I82.432 Acute embolism and thrombosis of left popliteal vein (principal); Z87.891 Personal history of nicotine dependence
CPT/HCPCS: 36415; 80053; 85025; 85610; 93005; 93010; 93971-TC; 99282-25

== ENCOUNTER 2018-06-16 04:11 | Emergency (ER) | payer OTHER ==
[2018-06-16 04:35] VITALS: BMI 29.5
--- NOTE | 2018-06-16 04:56 | PDOC ---
History of Present Illness - General History Source: Patient Exam Limitations: No Limitations - History of Present Illness Initial Comments: 06/16/18 04:51 Patient is a 42 year old male with h/o DVT on Eliquis c/o left leg swelling and slight pain. States has been having this swelling x months, was Dx 05/02/18 - Obstructive thrombus in distal left superficial femoral vein and put on Eliquis. He was not completely compliant with the med and on 05/25 returned to the ED for swelling to the left leg repeated Doppler done and was neg for DVT but on 05/29/18 Doppler showed obstructive thrombus in distal Left superficial Femoral vein. Again he return to the ED on 06/08/18 for swelling again but has missed doses of Eliquis and doppler at that time show an occlusive thrombus in the left distal popliteal jessica with minimal flow around the thrombus and given Lovenox in the ED. Post visit on 06/08 had follow up with Hemotology and Cardiology. States that everyday when he goes to work his leg set swollen, he would elevate and goes down with elevation. Tonight he soaked the left in Epson salt and feel better. He is hear tonight because he is concerned about the swelling that is not going down. Denies chest pain, sob, dizziness. GENERAL/CONSTITUTIONAL: [No fever or chills. No weakness. No weight change.] HEAD, EYES, EARS, NOSE AND THROAT: [No change in vision. No ear pain or discharge. No sore throat.] CARDIOVASCULAR: [No chest pain or shortness of breath.] RESPIRATORY: [No cough, wheezing, or hemoptysis.] GASTROINTESTINAL: [No nausea, vomiting, diarrhea or constipation. No rectal bleeding.] GENITOURINARY: [No dysuria, frequency, or change in urination.] MUSCULOSKELETAL: [No joint pain, (+) left lower ext muscle swelling and pain. No neck or back pain.] SKIN AND BREASTS: [No rash or easy bruising.] NEUROLOGIC: [No headache, vertigo, loss of consciousness, or loss of sensation.] PSYCHIATRIC: [No depression or anxiety.] ENDOCRINE: [No increased thirst. No abnormal weight change.] HEMATOLOGIC/LYMPHATIC: [No anemia, easy bleeding, or history of blood clots.] ALLERGIC/IMMUNOLOGIC: [No hives or skin allergy. No latex allergy.] GENERAL: [The patient is awake, alert, and fully oriented, in no acute distress. ] HEAD: [Normal with no signs of trauma.] EYES: [Pupils equal, round and reactive to light, extraocular movements intact, sclera anicteric, conjunctiva clear.] ENT: [Ears normal, nares patent, oropharynx clear without exudates. Moist mucous membranes.] NECK: [Normal range of motion, supple without lymphadenopathy, JVD, or masses.] LUNGS: [Breath sounds equal, clear to auscultation bilaterally. No wheezes, and no crackles.] HEART: [Regular rate and rhythm, normal S1 and S2 without murmur, rub.] ABDOMEN: [Soft, nontender, normoactive bowel sounds. No guarding, no rebound. No masses.] EXTREMITIES: [Normal range of motion, (+) 1+ edema left lower ext to the knee. pulses intact, No clubbing or cyanosis. No cords, erythema, or tenderness.] NEUROLOGICAL: [Cranial nerves II through XII grossly intact. Normal speech, normal gait.] PSYCH: [Normal mood, normal affect.] SKIN: [Warm, Dry, normal turgor, no rashes or lesions noted.] <Julian Prescott - Last Filed: 06/16/18 05:37> <Altagracia Brennan - Last Filed: 06/29/18 10:12> - General Chief Complaint: Pain, Acute Stated Complaint: L FOOT PAIN Time Seen by Provider: 06/16/18 04:33 Past History - Past Medical History COPD: No - Immunization History Immunization Up to Date: Yes - Suicide/Smoking/Psychosocial Hx Smoking History: Never smoked Have you smoked in the past 12 months: No Number of Cigarettes Smoked Daily: 8 If you are a former smoker, when did you quit?: 03/2018 Information on smoking cessation initiated: No Hx Alcohol Use: Yes Drug/Substance Use Hx: No Substance Use Type: None <Julian Prescott - Last Filed: 06/16/18 05:37> <Altagracia Brennan - Last Filed: 06/29/18 10:12> - Past Medical History Allergies/Adverse Reactions: Allergies Allergy/AdvReac Type Severity Reaction Status Date / Time No Known Allergies Allergy Verified 06/16/18 04:35 Home Medications: Ambulatory Orders Apixaban [Eliquis] 5 mg PO BID #30 tablet 06/08/18 Compress.stocking,Knee,Reg,Med [Truform Compression Stocking] 1 each MC DAILY # 1 each 06/16/18 *Physical Exam - Vital Signs Last Vital Signs Temp Pulse Resp BP Pulse Ox 98.3 F 47 L 16 112/64 97 06/16/18 04:15 06/16/18 04:15 06/16/18 04:15 06/16/18 04:15 06/16/18 04:15 <Julian Prescott - Last Filed: 06/16/18 05:37> - Vital Signs Last Vital Signs Temp Pulse Resp BP Pulse Ox 97.9 F 55 L 17 115/71 99 06/16/18 09:12 06/16/18 09:12 06/16/18 09:12 06/16/18 09:12 06/16/18 09:12 <Altagracia Brennan - Last Filed: 06/29/18 10:12> Medical Decision Making - Medical Decision Making 06/16/18 04:51 Patient is a 42 year old male with h/o DVT on Eliquis c/o left leg swelling and slight pain. States has been having this swelling x months, was Dx 05/02/18 - Obstructive thrombus in distal left superficial femoral vein and put on Eliquis with continue or leg swelling and pain. will repeat the doppler of the left lower ext. Endorsed to AM team pending doppler and disposition. <Julian Prescott - Last Filed: 06/16/18 05:37> - Medical Decision Making The patient was seen and evaluated in conjunction with midlevel provider under my direct supervision, ancillary studies were reviewed. I agree with the plan as outlined by PIETER Cisneros. repeat US and eval for DVT. 06/29/18 10:12 <Altagracia Brennan - Last Filed: 06/29/18 10:12> *DC/Admit/Observation/Transfer <Julian Prescott - Last Filed: 06/16/18 05:37> <Altagracia Brennan - Last Filed: 06/29/18 10:12> Diagnosis at time of Disposition: Edema of left lower extremity - Discharge Dispostion Disposition: HOME Condition at time of disposition: Stable - Prescriptions Prescriptions: Compress.stocking,Knee,Reg,Med [Truform Compression Stocking] 1 each MC DAILY # 1 each - Patient Instructions Printed Discharge Instructions: DI for Peripheral Edema, Unilateral Additional Instructions: Your ultrasound today did not show an evidence of blood clot You most likely have some venpous stasis or dependent edema Treatment is as folllows until you can see your PMD or physical therapy supervisor this week: 1) Leg elevation Simple elevation of the feet to at least heart level for 30 minutes three or four times per day improves cutaneous microcirculation and reduces edema in patients with chronic venous disease. I 2) Exercise Daily walking and simple ankle flexion exercises while seated are inexpensive and safe strategies in the management of chronic venous disease. 3)COMPRESSION THERAPY Static compression therapy is an essential component in the treatment of chronic venous disease. Wear compression stocking as directed Please continue your Eliquis. If symptoms worsen and/or you develop any chest pain, shortness of breath or palpitations, return to the ER immediately. Please follow-up with your PMD or physical therapy supervisor this week - Post Discharge Activity Forms/Work/School Notes: Back to Work
--- NOTE | 2018-06-16 08:20 | PDOC ---
*Physical Exam - Vital Signs Last Vital Signs Temp Pulse Resp BP Pulse Ox 98.3 F 50 L 16 112/64 98 06/16/18 04:15 06/16/18 05:00 06/16/18 04:15 06/16/18 04:15 06/16/18 07:20 - Physical Exam General Appearance: Yes: Appropriately Dressed. No: Apparent Distress HEENT: positive: Normal Voice Neck: positive: Supple Respiratory/Chest: positive: Lungs Clear, Normal Breath Sounds. negative: Respiratory Distress Cardiovascular: positive: Regular Rate, S1, S2 Extremity: positive: Other (minimal swelling to LLE compared to right, no ttp, no e/o statsis dermatitis or ulcer, pedal pulses intact) Integumentary: positive: Dry, Warm Neurologic: positive: Fully Oriented, Alert, Normal Mood/Affect <Cody Kunz - Last Filed: 06/16/18 08:34> - Vital Signs Last Vital Signs Temp Pulse Resp BP Pulse Ox 97.9 F 55 L 17 115/71 99 06/16/18 09:12 06/16/18 09:12 06/16/18 09:12 06/16/18 09:12 06/16/18 09:12 <Altagracia Brennan - Last Filed: 06/16/18 23:38> Medical Decision Making - Medical Decision Making 06/16/18 08:19 To me at 7 AM Patient is a 42-year-old male, s/2 2 knee arthroscopies, most recently 01/28, diagnosed with LLE DVT 04/29 and on Eliquis currently. Patient had returned to ED last week for recurrent pain and swelling to left leg and admitted at the time that he was non-compliant with his Eliquis. Repeat ultrasound was obtained which demonstrated DVT and patient was discharged to continue his eliquis. Patient now returns with complaint of left leg pain and swelling. Denies any chest pain, shortness of breath or palpitations at this time 06/16/18 08:23 Ultrasound done today showed no evidence of DVT vs distal popliteal vein DVT seen on ultrasound 06/07. Patient informed of results. Most likely experiencing venous stasis or dependent edema (given worsening of sxs after work ). Patient discharged to continue Eliquis with instructions for leg elevation and home exercises. Rx for compression stocking also given. Patient now reports that he was instructed by his PMD, yarding and folding machine operator and ER staff to use compression stockings, but states he was not given a prescription and has not purchased same on his own. Reasons to return to ER discussed with patient, otherwise to follow-up with his PMD and/or yarding and folding machine operator this week <Cody Kunz - Last Filed: 06/16/18 08:34> - Medical Decision Making The patient was seen and evaluated in conjunction with midlevel provider under my direct supervision, ancillary studies were reviewed. I agree with the plan as outlined by PIETER Cisneros. repeat duplex to eval for propagation, already on noac which is reassuring. 06/16/18 23:38 <BrennanAltagracia Ze - Last Filed: 06/16/18 23:38> *DC/Admit/Observation/Transfer <Cody Kunz - Last Filed: 06/16/18 08:34> <Altagracia Brennan Ze - Last Filed: 06/16/18 23:38> Diagnosis at time of Disposition: Edema of left lower extremity - Discharge Dispostion Disposition: HOME Condition at time of disposition: Stable - Prescriptions Prescriptions: Compress.stocking,Knee,Reg,Med [Truform Compression Stocking] 1 each MC DAILY # 1 each - Referrals - Patient Instructions Printed Discharge Instructions: DI for Peripheral Edema, Unilateral Additional Instructions: Your ultrasound today did not show an evidence of blood clot You most likely have some venpous stasis or dependent edema Treatment is as folllows until you can see your PMD or yarding and folding machine operator this week: 1) Leg elevation Simple elevation of the feet to at least heart level for 30 minutes three or four times per day improves cutaneous microcirculation and reduces edema in patients with chronic venous disease. I 2) Exercise Daily walking and simple ankle flexion exercises while seated are inexpensive and safe strategies in the management of chronic venous disease. 3)COMPRESSION THERAPY Static compression therapy is an essential component in the treatment of chronic venous disease. Wear compression stocking as directed Please continue your Eliquis. If symptoms worsen and/or you develop any chest pain, shortness of breath or palpitations, return to the ER immediately. Please follow-up with your PMD or yarding and folding machine operator this week - Post Discharge Activity Forms/Work/School Notes: Back to Work
[2018-06-16 09:13] VITALS: BP 115/71; PULSE 55; TEMP 97.9
== END 2018-06-16 09:13 | disposition home or self-care (01) ==
LOC: JER 04:11
DX: M79.604 Pain in right leg (principal); Z86.718 Personal history of other venous thrombosis and embolism; Z79.01 Long term (current) use of anticoagulants
CPT/HCPCS: 93971-TC; 99284-25

== ENCOUNTER 2018-09-14 06:50 | Emergency (ER) | payer OTHER ==
[2018-09-14 07:17] VITALS: BP 104/72; PULSE 51; TEMP 98.1; BMI 29.5
--- NOTE | 2018-09-14 07:41 | PDOC ---
History of Present Illness - General Chief Complaint: Edema Stated Complaint: Edema Time Seen by Provider: 09/14/18 07:28 History Source: Patient Exam Limitations: No Limitations Past History - Past Medical History Allergies/Adverse Reactions: Allergies Allergy/AdvReac Type Severity Reaction Status Date / Time No Known Allergies Allergy Verified 09/14/18 07:08 Home Medications: Ambulatory Orders Apixaban [Eliquis] 5 mg PO BID #30 tablet 06/08/18 COPD: No - Immunization History Immunization Up to Date: Yes - Suicide/Smoking/Psychosocial Hx Smoking History: Current every day smoker Have you smoked in the past 12 months: No Number of Cigarettes Smoked Daily: 8 If you are a former smoker, when did you quit?: 03/2018 Information on smoking cessation initiated: No Hx Alcohol Use: Yes Drug/Substance Use Hx: No Substance Use Type: None *Physical Exam - Vital Signs Last Vital Signs Temp Pulse Resp BP Pulse Ox 98.1 F 51 L 18 104/72 98 09/14/18 07:09 09/14/18 07:09 09/14/18 07:09 09/14/18 07:09 09/14/18 07:09 Moderate Sedation - Procedure Monitoring Vital Signs: Procedure Monitoring Vital Signs Temperature 98.1 F 09/14/18 07:09 Pulse Rate 51 L 09/14/18 07:09 Respiratory Rate 18 09/14/18 07:09 Blood Pressure 104/72 09/14/18 07:09 O2 Sat by Pulse Oximetry (%) 98 09/14/18 07:09 *DC/Admit/Observation/Transfer Diagnosis at time of Disposition: Pain and swelling of lower leg Qualifiers: Laterality: left Qualified Code(s): M79.662 - Pain in left lower leg; M79.89 - Other specified soft tissue disorders - Discharge Dispostion Disposition: HOME Decision to Admit order: No - Referrals Referrals: [facility] [place] [place] [Provider Group] Pepe Mcmanus MD [Staff Physician] - Kylah Knott MD [Staff Physician] - - Patient Instructions Additional Instructions: you were seen in the emergency department for your left lower leg swelling and pain. ultrasound did not show blood clot. we gave you discount card for eliquis. Please take your eliquis as prescribed. it is important for you to follow up with your primary medical doctor within 48-72 hours after discharge or use the referral we gave you. please follow up with the referred physicians within 1 week after discharge. please return to the emergency department if you have worsening symptoms or new concerning symptoms such as shortness of breath, chest pain, fast breathing, redness in the leg, and asymmetry in leg swelling. thank you. - Post Discharge Activity Forms/Work/School Notes: Back to Work
--- NOTE | 2018-09-14 11:09 | PDOC ---
Attending Attestation - HPI HPI: 09/14/18 11:36 CC: LLE Edema HPI: The patient is a 42 year old male, with a significant past medical history of DVT, who presents to the emergency department with, left lower extremity swelling. Patient has not been compliant with his blood thinners (took half dosage) due to insurance issues. Allergies: NKDA - Physicial Exam PE: 09/14/18 11:36 Vitals: Triage vital signs reviewed General Appearance: No acute distress, well nourished, well developed Head: Atraumatic Neck: Supple; No nuchal rigidity Chest Wall: Nontender Cardiac: Regular rate and rhythm, no murmurs, no rubs, no gallops Lungs: Clear to auscultation bilateral, good air movement bilaterally Abdomen: Soft, nondistended, normal bowel sounds, nontender to palpation Rectal: Exam deferred +Extremities: 2+ pitting edema. Full range of motion to all extremities, no cyanosis or clubbing, Skin: Warm and dry, no rashes or lesions, no rash, no petechiae Neuro: AOX3; Cranial Nerves 2-12 grossly intact, Strength intact to all extremities, Sensation intact to all extremities, gait normal Psych: Normal mood, normal affect <Dana Jean - Last Filed: 09/14/18 11:36> - Resident Resident Name: Tanner Stiles - ED Attending Attestation I have performed the following: I have examined & evaluated the patient, The case was reviewed & discussed with the resident, I agree w/resident's findings & plan, Exceptions are as noted - Medical Decision Making 09/14/18 16:26 42 years old presents to the ED with calf pain. History of DVTs. Ultrasound today negative for DVT. We spoke to our director social service to help patient obtain his anticoagulation Findings, need for follow-up and strict return instructions discussed with patient. <Manoj Szymanski - Last Filed: 09/14/18 16:26> Attestations - Attestations 09/14/18 11:37 Documentation prepared by Dana Jean, acting as medical technician for Manoj Szymanski MD. <Dana Jean - Last Filed: 09/14/18 11:36>
== END 2018-09-14 11:31 | disposition home or self-care (01) ==
LOC: JER 06:50
DX: M79.662 Pain in left lower leg (principal); M79.89 Other specified soft tissue disorders; F17.210 Nicotine dependence, cigarettes, uncomplicated
CPT/HCPCS: 93970-TC; 99281-25

== ENCOUNTER 2018-11-13 19:24 | Emergency (ER) | payer OTHER ==
--- NOTE | 2018-11-13 19:39 | PDOC ---
Rapid Medical Evaluation Time Seen by Provider: 11/13/18 19:37 Medical Evaluation: Allergies Allergy/AdvReac Type Severity Reaction Status Date / Time No Known Allergies Allergy Verified 11/13/18 19:37 11/13/18 19:38 Pt c/o: elmira leg burning, hx dvt, denies weakness, sob or swelling Pt on brief exam: vss, no calf tenderness Pt ordered for: elmira duplex Pt to proceed to the ED Discharge Disposition - Diagnosis Pain and swelling of lower leg - Referrals - Patient Instructions - Post Discharge Activity
[2018-11-13 19:40] VITALS: BP 129/49; PULSE 50; TEMP 98.2; BMI 28.7
--- NOTE | 2018-11-13 20:33 | PDOC ---
History of Present Illness - General Chief Complaint: Pain, Acute Stated Complaint: LEG PAIN Time Seen by Provider: 11/13/18 19:37 - History of Present Illness Initial Comments: 42 year old male with PMH of left lower leg DVT (01/2018 currently only on ASA after resolution, thought to be secondary to a left knee arthroscopy) presenting with left calf pain and right anterior upper thigh pain for the past month. States that he has been working for the past 6 months and standing on his feet with increasing frequency. He had a DVT scan in the left leg last month that was negative for DVT. He does not take Tylenol or Motrin for the pain because he doesn't like to medicate with OTCs. He does have significant leg swelling bilaterally at the end of his shifts that is better with elevation and compression stockings. Denies any nausea, vomiting, fevers, chills, recent travel, immobility, chest pain, SOB, or other symptoms. 11/13/18 20:59 Past History - Past Medical History Allergies/Adverse Reactions: Allergies Allergy/AdvReac Type Severity Reaction Status Date / Time No Known Allergies Allergy Verified 11/13/18 19:37 Home Medications: Ambulatory Orders Aspirin [ASA -] 11/13/18 COPD: No - Immunization History Immunization Up to Date: Yes - Suicide/Smoking/Psychosocial Hx Smoking History: Never smoked Have you smoked in the past 12 months: No Number of Cigarettes Smoked Daily: 8 If you are a former smoker, when did you quit?: 03/2018 Information on smoking cessation initiated: No Hx Alcohol Use: No Drug/Substance Use Hx: No Substance Use Type: None Review of Systems - Review of Systems Constitutional: No: Chills, Diaphoresis, Fever, Loss of Appetite HEENTM: No: Eye Pain, Blurred Vision, Tearing Respiratory: No: Cough, Orthopnea, Shortness of Breath Cardiac (ROS): No: Chest Pain, Edema, Irregular Heart Rate ABD/GI: No: Diarrhea, Nausea, Vomiting : No: Dysuria, Discharge, Frequency Musculoskeletal: No: Back Pain, Gout, Joint Pain Integumentary: No: Lumps, Pallor, Pruritus, Rash Neurological: No: Headache, Numbness, Paresthesia Psychiatric: No: Anxiety, Depression Endocrine: No: Flushing, Intolerance to Cold, Intolerance to Heat Hematologic/Lymphatic: Yes: Blood Clots. No: Easy Bleeding *Physical Exam - Vital Signs Last Vital Signs Temp Pulse Resp BP Pulse Ox 98.2 F 50 L 18 129/49 L 98 11/13/18 19:38 11/13/18 19:38 11/13/18 19:38 11/13/18 19:38 11/13/18 19:38 - Physical Exam General Appearance: Yes: Nourished, Appropriately Dressed. No: Apparent Distress HEENT: positive: EOMI, RAE, Normal ENT Inspection, Normal Voice Neck: positive: Trachea midline, Normal Thyroid, Supple. negative: Tender, Rigid Respiratory/Chest: positive: Lungs Clear, Normal Breath Sounds. negative: Chest Tender, Respiratory Distress, Accessory Muscle Use Cardiovascular: positive: Regular Rhythm, Regular Rate Gastrointestinal/Abdominal: positive: Normal Bowel Sounds, Flat, Soft. negative : Tender Lymphatic: negative: Adenopathy, Tenderness Musculoskeletal: positive: Normal Inspection. negative: Decreased Range of Motion Extremity: positive: Normal Capillary Refill, Normal Inspection, Normal Range of Motion. negative: Tender Integumentary: positive: Normal Color, Dry, Warm Neurologic: positive: Fully Oriented, Alert, Normal Mood/Affect, Normal Response , Motor Strength 5/5 Moderate Sedation - Procedure Monitoring Vital Signs: Procedure Monitoring Vital Signs Temperature 98.2 F 11/13/18 19:38 Pulse Rate 50 L 11/13/18 19:38 Respiratory Rate 18 11/13/18 19:38 Blood Pressure 129/49 L 11/13/18 19:38 O2 Sat by Pulse Oximetry (%) 98 11/13/18 19:38 Medical Decision Making - Medical Decision Making 42 year old male with PMH of DVT thought to be secondary to knee arthroscopy in 01/2018 presenting with left and right leg pain for the past month. His duplex scan was negative here and he was acutely asymptomatic. He has a vascular appointment on 11/19/18 and will ask all follow up questions to them. He will be discharged with Tylenol and Motrin use instructions plus return precautions. 11/13/18 21:11 *DC/Admit/Observation/Transfer Diagnosis at time of Disposition: Pain and swelling of lower leg Qualifiers: Laterality: unspecified laterality Qualified Code(s): M79.669 - Pain in unspecified lower leg; M79.89 - Other specified soft tissue disorders - Discharge Dispostion Disposition: HOME Condition at time of disposition: Improved Decision to Admit order: No - Referrals Referrals: [facility] [place] [Provider Group] - Patient Instructions Printed Discharge Instructions: DI for Leg Pain Additional Instructions: You had no clot on your ultrasound scan. Please elevate your legs at least twice during your shifts for 20 minutes. Please use compression stockings as we discussed. Please follow up with your vascular physician on the 7th per your appointment. Please see your PCP within one week or you can see our physicians at our clinic on this sheet. - Post Discharge Activity Forms/Work/School Notes: Back to Work
--- NOTE | 2018-11-13 21:22 | PDOC ---
Attending Attestation - Resident Resident Name: Zia Delaney - ED Attending Attestation I have performed the following: I have examined & evaluated the patient, The case was reviewed & discussed with the resident, I agree w/resident's findings & plan - Medical Decision Making 11/13/18 21:47 Pt has varicosities on his right thigh; he has no leg swelling visible at this time. He states that after long work shifts his legs swell up and hurt. Pt has no fever. Normal exam, and sonogram of leg demonstrates no DVT; he will follow with his vascular surgeons at [facility], where he lives. Pt is stable for d/c at this time. He is requesting a work note for 2 days, which we will provide. <Sierra Young - Last Filed: 11/13/18 21:47> - HPI HPI: 11/13/18 21:50 The patient is a 42 year old male, with a significant past medical history of DVT, who presents to the emergency department with, 1 month of left thigh and anterior calf pain. Patient endorses the pain to occur after long shifts. He has an appointment with a vascular surgeon next week. He denies any recent fevers, chills, headache or dizziness. He denies any recent nausea, vomit, diarrhea or constipation. He denies any recent chest pain or shortness of breath. Allergies: NKDA - Physicial Exam PE: 11/13/18 21:50 GENERAL: Awake, alert, and fully oriented, in no acute distress HEAD: No signs of trauma EYES: PERRLA, EOMI, sclera anicteric, conjunctiva clear ENT: Auricles normal inspection, hearing grossly normal, nares patent, oropharynx clear without exudates. Moist mucosa NECK: Normal ROM, supple, no lymphadenopathy, JVD, or masses LUNGS: Breath sounds equal, clear to auscultation bilaterally. No wheezes, and no crackles HEART: Regular rate and rhythm, normal S1 and S2, no murmurs, rubs or gallops ABDOMEN: Soft, nontender, normoactive bowel sounds. No guarding, no rebound. No masses EXTREMITIES: Normal range of motion, no edema. No clubbing or cyanosis. No cords, erythema, or tenderness NEUROLOGICAL: Cranial nerves II through XII grossly intact. Normal speech, normal gait SKIN: Warm, Dry, normal turgor, no rashes or lesions noted. <Dana Jean - Last Filed: 11/13/18 21:51> Attestations - Attestations 11/13/18 21:51 Documentation prepared by Dana Jean, acting as medical instrument cable fabricator for Sierra Young MD. <Dana Jean - Last Filed: 11/13/18 21:51>
== END 2018-11-13 22:19 | disposition home or self-care (01) ==
LOC: JER 19:24
DX: M79.669 Pain in unspecified lower leg (principal); M79.89 Other specified soft tissue disorders; Z86.718 Personal history of other venous thrombosis and embolism; Z87.891 Personal history of nicotine dependence
CPT/HCPCS: 93970-TC; 99282-25

== ENCOUNTER 2019-04-12 20:11 | Emergency (ER) | payer OTHER ==
[2019-04-12 20:23] VITALS: BP 163/89; PULSE 57; TEMP 98.3; BMI 26.9
--- NOTE | 2019-04-12 20:24 | PDOC ---
Rapid Medical Evaluation Time Seen by Provider: 04/12/19 20:19 Medical Evaluation: Allergies Allergy/AdvReac Type Severity Reaction Status Date / Time No Known Allergies Allergy Verified 11/13/18 19:37 04/12/19 20:19 I have performed a brief in-person evaluation of this patient. The patient presents with a chief complaint of: back pain this am, no fevers , concerned about weight loss but note only 12lb lost Pertinent physical exam findings: well appearing/ moving well. I have ordered the following: nothing The patient will proceed to the ED for further evaluation. Discharge Disposition - Diagnosis Back pain Qualifiers: Back pain location: low back pain - Referrals - Patient Instructions - Post Discharge Activity
--- NOTE | 2019-04-12 20:59 | PDOC ---
History of Present Illness - General Chief Complaint: Back Pain Stated Complaint: LOWER BACK PAIN Time Seen by Provider: 04/12/19 20:19 - History of Present Illness Initial Comments: 04/12/19 20:57 43-year-old male without comorbidities presents for evaluation of back pain which started last night and radiated around from the left side of his upper back to his chest. His pain was relieved with Tylenol. 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 He does report a 12 pound weight loss without effort over the last 3 months with associated intermittent night sweats and chills over the last 3 months. Past History - Past Medical History Allergies/Adverse Reactions: Allergies Allergy/AdvReac Type Severity Reaction Status Date / Time No Known Allergies Allergy Verified 04/12/19 20:23 Home Medications: Ambulatory Orders NK [No Known Home Medication] 11/13/18 COPD: No - Immunization History Immunization Up to Date: Yes - Suicide/Smoking/Psychosocial Hx Smoking History: Never smoked Have you smoked in the past 12 months: No Number of Cigarettes Smoked Daily: 8 If you are a former smoker, when did you quit?: 03/2018 Hx Alcohol Use: No Drug/Substance Use Hx: No Substance Use Type: None Review of Systems - Review of Systems Constitutional: Yes: Chills, Night Sweats. No: Fever Musculoskeletal: Yes: Back Pain *Physical Exam - Vital Signs Last Vital Signs Temp Pulse Resp BP Pulse Ox 98.3 F 57 L 18 163/89 98 04/12/19 20:19 04/12/19 20:19 04/12/19 20:19 04/12/19 20:19 04/12/19 20:19 - Physical Exam Comments: 04/12/19 20:58 HEAD: NC/AT EYES: Conjuntiva clear Ears: Canals and TM's normal NOSE: No d/c THROAT: Moist mucous membrances, oral pharanx clear, uvula midline NECK: Supple without adenopathy CARDIAC: S1 S2 LUNGS: CTA Full and Equal breath sounds ABDOMEN: Soft NT ND MS: Full ROM in all joints without edema NEUROLOGIC: No gross sensory or motor deficits, NVID SKIN: Normal color and temperature no lesions or rashes; there is about a 2 cm lipoma circumferentially on the right side of his thoracic spine ED Treatment Course - RADIOLOGY Radiology Studies Ordered: Category Date Time Status CHEST PA & LAT [RAD] Stat Radiology 04/12/19 20:57 Ordered Medical Decision Making - Medical Decision Making 04/12/19 20:59 We'll do preliminary laboratory work. This patient is most likely in need of a chest abdomen and pelvis CAT scan with IV contrast I will transfer him to the main emergency room. *DC/Admit/Observation/Transfer Diagnosis at time of Disposition: Back pain Qualifiers: Back pain location: low back pain - Referrals Referrals: ON STAFF,NOT [Primary Care Provider] - - Patient Instructions - Post Discharge Activity
--- NOTE | 2019-04-12 21:09 | PDOC ---
*Physical Exam - Vital Signs Last Vital Signs Temp Pulse Resp BP Pulse Ox 98.3 F 57 L 18 163/89 98 04/12/19 20:19 04/12/19 20:19 04/12/19 20:19 04/12/19 20:19 04/12/19 20:19 - Physical Exam HEENT: positive: Normal ENT Inspection Respiratory/Chest: positive: Lungs Clear, Normal Breath Sounds. negative: Chest Tender Cardiovascular: positive: Regular Rhythm, Regular Rate Gastrointestinal/Abdominal: positive: Normal Bowel Sounds, Soft. negative: Tender Musculoskeletal: positive: Normal Inspection. negative: Vertebral Tenderness Extremity: positive: Normal Capillary Refill, Normal Inspection, Normal Range of Motion Integumentary: positive: Normal Color, Dry, Warm Neurologic: positive: Fully Oriented, Alert ED Treatment Course - LABORATORY CBC & Chemistry Diagram: 04/12/19 21:00 04/12/19 21:00 Medical Decision Making - Medical Decision Making 04/12/19 21:52 c/o left sided back radiating to left side chest. reports that pain has been resolved. 04/12/19 21:59 labs are wnl. chest xray wnl. strict return precautions reviewed with patient, patient has a follow up appt with pcp tomorrow at 11.15, *DC/Admit/Observation/Transfer Diagnosis at time of Disposition: Back pain Qualifiers: Back pain location: back pain in unspecified location Chronicity: acute Back pain laterality: left Qualified Code(s): M54.9 - Dorsalgia, unspecified Chest pain Qualifiers: Chest pain type: unspecified Qualified Code(s): R07.9 - Chest pain, unspecified - Discharge Dispostion Disposition: HOME - Referrals Referrals: ON STAFF,NOT [Primary Care Provider] - - Patient Instructions Printed Discharge Instructions: DI for Atypical Chest Pain Additional Instructions: please follow up with pcp as soon as possible. Additional Instructions: * Please call your personal physician to report your Emergency Department visit and to report your progress, if any. * If there is no improvement in symptoms in 2 days call your physician. * Return to the Emergency Department for any worsening symptoms. - Post Discharge Activity Forms/Work/School Notes: Back to Work
[2019-04-12 21:23] LABS: BASO % 0.4 % (0-2.0); EOS % 1.5 % (0-4.5); HEMATOCRIT 44.7 % (35.4-49); HEMOGLOBIN 15.5 GM/dL (11.7-16.9); LYMPH % 30.5 % (8-40); MCH 29.3 pg (25.7-33.7); MCHC 34.6 g/dl (32.0-35.9); MEAN CELL VOLUME 84.5 fl (80-96); MEAN PLT VOLUME 10.3 fl (7.5-11.1); MONO % 6.7 % (3.8-10.2); NEUT % 60.9 % (42.8-82.8); PLATELET COUNT 166 K/MM3 (134-434); RBC 5.29 M/mm3 (4.00-5.60); RDW 13.6 % (11.9-15.9); WHITE BLOOD COUNT 9.3 K/mm3 (4.0-10.0)
[2019-04-12 21:44] LABS: ALBUMIN 3.7 g/dl (3.4-5.0); ALK PHOS 95 U/L (45-117); ANION GAP 5 MMOL/L (8-16); BILIRUBIN,TOTAL 0.3 mg/dL (0.2-1); BLOOD UREA NITROGEN 13.2 mg/dL (7-18); CALCIUM 8.5 mg/dL (8.5-10.1); CHLORIDE 107 mmol/L (98-107); CO2 28 mmol/L (21-32); CREATININE 1.4 mg/dL (0.55-1.3); GLUCOSE,RANDOM 94 mg/dL (74-106); POTASSIUM 3.8 mmol/L (3.5-5.1); SGOT/AST 21 U/L (15-37); SGPT/ALT 41 U/L (13-61); SODIUM 139 mmol/L (136-145); TOT PROT 7.2 g/dl (6.4-8.2)
--- NOTE | 2019-04-13 14:45 | EKG ---
Test Reason : Blood Pressure : / mmHG Vent. Rate : 040 BPM Atrial Rate : 040 BPM P-R Int : 156 ms QRS Dur : 092 ms QT Int : 460 ms P-R-T Axes : -09 -04 013 degrees QTc Int : 374 ms MARKED SINUS BRADYCARDIA ABNORMAL ECG WHEN COMPARED WITH ECG OF 08-JUN-2018 00:31, NO SIGNIFICANT CHANGE WAS FOUND Confirmed by MD ONEAL, MEHREEN ([id number]) on 04/13/2019 2:45:31 PM Referred By: DC Confirmed By:MEHREEN NO MD
== END 2019-04-12 22:09 | disposition home or self-care (01) ==
LOC: JERFT 20:11 → JER 20:11
DX: R07.9 Chest pain, unspecified (principal); M54.5 Low back pain; D17.1 Benign lipomatous neoplasm of skin and subcutaneous tissue of trunk
CPT/HCPCS: 36415; 71046-TC-FY; 80053; 84484; 85025; 93005; 93010; 99281-25

== ENCOUNTER 2019-06-24 16:46 | Emergency (ER) | payer OTHER ==
[2019-06-24 16:59] VITALS: BP 131/90; PULSE 62; TEMP 98.1; BMI 28.0
--- NOTE | 2019-06-24 16:59 | PDOC ---
Rapid Medical Evaluation Chief Complaint: Pain Time Seen by Provider: 06/24/19 16:55 Medical Evaluation: Allergies Allergy/AdvReac Type Severity Reaction Status Date / Time No Known Allergies Allergy Verified 06/24/19 16:54 06/24/19 16:56 43 year old c/o left toe injury 3 months ago now with color changes to toe. PE: patient alert ox3. dARK NAIL TO GREAT TOE, NO REDNESS TO toe a: fungal nail infection? P: patient to the ER for further management of caRE Discharge Disposition - Diagnosis Fungal toenail infection - Referrals - Patient Instructions - Post Discharge Activity
--- NOTE | 2019-06-24 17:40 | PDOC ---
History of Present Illness - General Chief Complaint: Pain Stated Complaint: PAIN Time Seen by Provider: 06/24/19 16:55 - History of Present Illness Initial Comments: 06/24/19 17:35 CHIEF COMPLAINT: toe problem HISTORY OF PRESENT ILLNESS: 43 yo M with no significant PMH presents to [facility] with concerns of great toes. Patient states his left great toe was "banged up a while ago and it's turned black and kind of green now, and it's loose like it's going to come off. And my other toe is kind of like that too." Denies any other symptoms. No recent travel or sick contacts. PAST MEDICAL HISTORY: Denies past medical history FAMILY HISTORY: Denies SOCIAL HISTORY: Denies tobacco, alcohol, illicit drug use. SURGICAL HISTORY: Denies ALLERGIES: No known drug allergies REVIEW OF SYSTEMS General/Constitutional: Denies fever or chills. Denies weakness, weight change. HEENT: Denies change in vision. Denies ear pain or discharge. Denies sore throat. Cardiovascular: Denies chest pain or shortness of breath. Respiratory: Denies cough, wheezing, or hemoptysis. Gastrointestinal: Denies nausea, vomiting, diarrhea or constipation. Denies rectal bleeding. Genitourinary: Denies dysuria, frequency, or change in urination. Musculoskeletal: Denies joint or muscle swelling or pain. Denies neck or back pain. Skin: Green/black toe color and "looseness". Neurologic: Denies headache, vertigo, loss of consciousness, or loss of sensation. PHYSICAL EXAM General Appearance: Well-appearing, appropriately dressed. No apparent distress , no intoxication. HEENT: EOMI, PERRLA, normal ENT inspection, normal voice, TMs normal, pharynx normal. No conjunctival pallor. No photophobia, scleral icterus. Neck: Supple. Trachea midline. No tenderness, rigidity, carotid bruit, stridor , lymphadenopathy, or thyromegaly. Respiratory/Chest: Lungs CTAB. No shortness of breath, chest tenderness, respiratory distress, accessory muscle use. No crackles, rales, rhonchi, stridor , wheezing, dullness Cardiovascular: RRR. S1, S2. No JVD, murmur, bradycardia, tachycardia. Vascular Pulses: Dorsalis-Pedis (R): 2+, Dorsalis-Pedis (L): 2+ Gastrointestinal/Abdominal: Normal bowel sounds. Abdomen soft, non-distended. No tenderness or rebound tenderness. No organomegaly, pulsatile mass, guarding , hernia, hepatomegaly, splenomegaly. Lymphatic: No adenopathy, tenderness. Musculoskeletal/Extremities: Normal inspection. FROM of all extremities, normal capillary refill. Pelvis Stable. No CVA tenderness. No tenderness to extremities, pedal edema, swelling, erythema or deformity. Integumentary: Onychomosis to b/l great toes, left great toe with dried subungal hematoma. Appropriate color, dry, warm. 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 Fully oriented, alert. Appropriate mood/affect. Motor strength 5/5. No appreciable EOM palsy, facial droop or sensory deficit. Past History - Past Medical History Allergies/Adverse Reactions: Allergies Allergy/AdvReac Type Severity Reaction Status Date / Time No Known Allergies Allergy Verified 06/24/19 16:54 Home Medications: Ambulatory Orders Terbinafine HCl 250 mg PO DAILY #30 tablet 06/24/19 COPD: No - Immunization History Immunization Up to Date: Yes - Suicide/Smoking/Psychosocial Hx Smoking History: Former smoker Have you smoked in the past 12 months: No Number of Cigarettes Smoked Daily: 8 If you are a former smoker, when did you quit?: 2019 Information on smoking cessation initiated: Yes Hx Alcohol Use: No Drug/Substance Use Hx: Yes ([facility]) Substance Use Type: None *Physical Exam - Vital Signs Last Vital Signs Temp Pulse Resp BP Pulse Ox 98.1 F 62 18 131/90 98 06/24/19 16:55 06/24/19 16:55 06/24/19 16:55 06/24/19 16:55 06/24/19 16:55 Medical Decision Making - Medical Decision Making 06/24/19 17:38 43 yo M with no significant PMH presents to [facility] with concerns of great toes. Onychomyosis of b/l great toes. Advised patient to take medication as prescribed and follow up with podiatry for continued management of onychomyosis. Advised patient of signs and symptoms for return to ED. Patient verbalized understanding and agrees to plan. *DC/Admit/Observation/Transfer Diagnosis at time of Disposition: Fungal toenail infection - Discharge Dispostion Disposition: HOME Condition at time of disposition: Stable Decision to Admit order: No - Prescriptions Prescriptions: Terbinafine HCl 250 mg PO DAILY #30 tablet - Referrals Referrals: Pavel Hargrove MD [Staff Physician] - Gautam Hameed MD [Staff Physician] - Delta Padilla MD [Staff Physician] - - Patient Instructions Printed Discharge Instructions: DI for Onychomycosis Additional Instructions: Please take medications as prescribed. As discussed, you MUST follow up with podiatry for continued monitoring of your symptoms as well as your medication regimen. If you develop any new or worsening symptoms, please return to the ER. - Post Discharge Activity
== END 2019-06-24 17:45 | disposition home or self-care (01) ==
LOC: JERFT 16:46
DX: B35.1 Tinea unguium (principal)
CPT/HCPCS: 99281-25

== ENCOUNTER 2019-10-22 23:25 | Emergency (ER) | payer OTHER ==
[2019-10-22 23:34] VITALS: TEMP 99.1; BMI 26.6
--- NOTE | 2019-10-23 01:46 | PDOC ---
History of Present Illness - General History Source: Patient Exam Limitations: Clinical Condition - History of Present Illness Initial Comments: 10/23/19 01:43 Patient with no significant past medical history present with complaint of 3- day history of persistent yellow productive cough, nasal congestion, body aches , tactile fever and chills. Patient report having similar episode a year ago and turned out to be pneumonia. Patient reported taking Aleve yesterday morning for symptoms and has not taken anything since then. Denies recent travel, sick contact. Denies any other symptoms Is this a multiple visit Asthma Patient?: No Timing/Duration: other (3 days) <Mehdi Zeng - Last Filed: 10/23/19 02:16> <Lucian Myles - Last Filed: 10/26/19 12:05> - General Chief Complaint: Respiratory Stated Complaint: COLD SYMPTOMS Time Seen by Provider: 10/23/19 00:04 Past History - Past Medical History COPD: No - Immunization History Immunization Up to Date: Yes - Psycho Social/Smoking Cessation Hx Smoking History: Former smoker Have you smoked in the past 12 months: No Number of Cigarettes Smoked Daily: 8 If you are a former smoker, when did you quit?: 2019 Information on smoking cessation initiated: No Hx Alcohol Use: No Drug/Substance Use Hx: Yes ([facility]) Substance Use Type: None <Mehdi Zeng - Last Filed: 10/23/19 02:16> <Lucian Myles - Last Filed: 10/26/19 12:05> - Past Medical History Allergies/Adverse Reactions: Allergies Allergy/AdvReac Type Severity Reaction Status Date / Time No Known Allergies Allergy Verified 10/22/19 23:34 Home Medications: Ambulatory Orders Terbinafine HCl 250 mg PO DAILY #30 tablet 06/24/19 Azithromycin [Zithromax 250mg Tablets -] 250 mg PO UTDICT #6 tab 10/23/19 Benzonatate [Tessalon Pearls -] 100 mg PO Q8H PRN #20 capsule 10/23/19 Ipratropium [place] 2 spray NS BID PRN #1 spray 10/23/19 Montelukast Na [Singulair -] 10 mg PO DAILY #7 tablet 10/23/19 Review of Systems - Review of Systems Able to Perform ROS?: Yes Is the patient limited Citizen [place] proficient: No Constitutional: Yes: Chills, Fever, Malaise HEENTM: Yes: Symptoms Reported, See HPI, Nose Congestion. No: Eye Pain, Blurred Vision, Tearing, Recent change in vision, Double Vision, Cataracts, Ear Pain, Ocular Prothesis, Ear Discharge, Nose Pain, Tinnitus, Nose Bleeding, Hearing Loss, Throat Pain, Throat Swelling, Mouth Pain, Dental Problems, Difficulty Swallowing, Mouth Swelling, Other Respiratory: Yes: Symptoms reported, See HPI, Cough, Productive cough. No: Orthopnea, Shortness of Breath, SOB with Exertion, SOB at Rest, Stridor, Wheezing, Hemoptysis, Other Cardiac (ROS): No: Symptoms Reported, See HPI, Chest Pain, Edema, Irregular Heart Rate, Lightheadedness, Palpitations, Syncope, Chest Tightness, Other ABD/GI: No: Symptoms Reported, See HPI, Nausea, Vomiting, Abdominal cramping Musculoskeletal: No: Symptoms Reported Integumentary: No: Symptoms Reported, Rash Neurological: No: Symptoms reported, Headache, Dizziness All Other Systems: Reviewed and Negative <Mehdi Zeng - Last Filed: 10/23/19 02:16> *Physical Exam - Vital Signs Last Vital Signs Temp Pulse Resp BP Pulse Ox 99.1 F 63 18 132/80 99 10/22/19 23:29 10/22/19 23:29 10/22/19 23:29 10/22/19 23:29 10/22/19 23:29 - Physical Exam 10/23/19 01:45 GENERAL: Well developed, well nourished. Awake and alert. No acute distress. HEENT: Normocephalic, atraumatic. PERRLA, EOMI. No conjunctival pallor. Sclera are non-icteric. Moist mucous membranes. Oropharynx is clear. NECK: Supple. Full ROM. CARDIOVASCULAR: Regular rate and rhythm. No murmurs, rubs, or gallops. Distal pulses are 2+ and symmetric. PULMONARY: No evidence of respiratory distress. Lungs clear to auscultation bilaterally. No wheezing, rales or rhonchi. ABDOMINAL: Soft. Non-tender. Non-distended. No rebound or guarding. No organomegaly. Normoactive bowel sounds. MUSCULOSKELETAL Normal range of motion at all joints. SKIN: Warm and dry. Normal capillary refill. No rashes. No jaundice. NEUROLOGICAL: Alert, awake, appropriate. Gait is normal without ataxia. PSYCHIATRIC: Cooperative. Good eye contact. Appropriate mood General Appearance: Yes: Nourished, Appropriately Dressed. No: Apparent Distress <Mehdi Zeng - Last Filed: 10/23/19 02:16> - Vital Signs Last Vital Signs Temp Pulse Resp BP Pulse Ox 99.1 F 64 18 128/76 97 10/22/19 23:29 10/23/19 02:15 10/23/19 02:15 10/23/19 02:15 10/23/19 02:15 <Lucian Myles - Last Filed: 10/26/19 12:05> ED Treatment Course - RADIOLOGY Radiology Studies Ordered: Category Date Time Status CHEST PA & LAT [RAD] Stat Radiology 10/23/19 01:34 Ordered <Mehdi Zeng Pedro - Last Filed: 10/23/19 02:16> - Medications Given in the ED: ED Medications Discontinued Medications Generic Name Dose Route Start Last Admin Trade Name Melodie PRN Reason Stop Dose Admin Azithromycin 500 mg 10/23/19 02:03 10/23/19 02:14 Zithromax - PO 10/23/19 02:04 500 mg ONCE ONE Administration <Lucian Myles - Last Filed: 10/26/19 12:05> Medical Decision Making - Medical Decision Making 10/23/19 01:44 Patient with no significant past medical history present with complaint of 3- day history of persistent yellow productive cough, nasal congestion, body aches , tactile fever and chills. Patient report having similar episode a year ago and turned out to be pneumonia. Patient reported taking Aleve yesterday morning for symptoms and has not taken anything since then. Denies recent travel, sick contact. Denies any other symptoms Clinical exam unremarkable with lungs clear to auscultation bilateral. No abdominal tenderness. Patient afebrile. Given patient history of pneumonia, will do a chest x-ray to rule out pneumonia. Treat based on imaging results 10/23/19 02:16 Chest x-ray shows no acute infiltrate given patient history will discharge home on Z-Matt antibiotics Tessalon Perles for cough and nasal nasal spray for nasal congestion as needed with advised to increase fluid intake and follow-up with primary care. Patient given 1 dose 500 mg azithromycin ER prior to discharge given pharmacy already closed <Mehdi Zeng - Last Filed: 10/23/19 02:16> - Medical Decision Making The patient was seen and evaluated in conjunction with PIETER Zeng under my direct supervision, ancillary studies were reviewed. I agree with the plan as outlined by PIETER Zeng. <Lucian Myles - Last Filed: 10/26/19 12:05> Discharge - Discharge Information Problems reviewed: Yes - Admission No <Mehdi Zeng - Last Filed: 10/23/19 02:16> <Lucain Myles - Last Filed: 10/26/19 12:05> - Discharge Information Clinical Impression/Diagnosis: URI, acute, Cough, Malaise Condition: Stable Disposition: HOME - Additional Discharge Information Prescriptions: Azithromycin [Zithromax 250mg Tablets -] 250 mg PO UTDICT #6 tab Benzonatate [Tessalon Pearls -] 100 mg PO Q8H PRN #20 capsule PRN Reason: Cough Ipratropium [place]mond[place] 2 spray NS BID PRN #1 spray PRN Reason: nasal congestion Montelukast Na [Singulair -] 10 mg PO DAILY #7 tablet - Follow up/Referral Referrals: ON STAFF,NOT [Primary Care Provider] - - Patient Discharge Instructions Patient Printed Discharge Instructions: Acute Bronchitis Additional Instructions: Take prescribed medication as prescribed for cough and congestion. Increase fluid intake. Follow-up with primary care - Post Discharge Activity Work/Back to School Note: Back to Work
[2019-10-23] MEDS ORDERED: AZITHROMYCIN 250 MG TABLET PO ONE (02:03)
[2019-10-23] MEDS ORDERED: AZITHROMYCIN 500 MG TABLET ONE (02:12)
[2019-10-23 04:20] VITALS: BP 128/76; PULSE 64
== END 2019-10-23 02:15 | disposition home or self-care (01) ==
LOC: JER 23:25
DX: J06.9 Acute upper respiratory infection, unspecified (principal); R53.81 Other malaise
CPT/HCPCS: 71046-TC-FY; 99282-25

== ENCOUNTER 2020-07-30 06:45 | Emergency (ER) | payer OTHER ==
--- NOTE | 2020-07-30 07:40 | PDOC ---
History of Present Illness - General Chief Complaint: Pain Stated Complaint: left leg pain Time Seen by Provider: 07/30/20 07:39 History Source: Patient - History of Present Illness Initial Comments: 07/30/20 07:40 44M w/hx prior DVT on daily ASA, LLE surgery s/p fracture p/w two days of LLE pain, tenderness. He reports working at [employer] on a [employer], and while at work two days ago had a sudden posterior L lower leg aching, which felt similar to the pain from his previous DVT. He reports that since then the pain has been intermittent, and he denies any pain at this time. He endorses ongoing soreness to the back of the L leg without swelling or erythema. He denies any palpitations, chest pain, sob, weakness, headache. Past History - Medical History Allergies/Adverse Reactions: Allergies Allergy/AdvReac Type Severity Reaction Status Date / Time No Known Allergies Allergy Verified 10/22/19 23:34 Home Medications: Ambulatory Orders Terbinafine HCl 250 mg PO DAILY #30 tablet 06/24/19 Azithromycin [Zithromax 250mg Tablets -] 250 mg PO UTDICT #6 tab 10/23/19 Benzonatate [Tessalon Pearls -] 100 mg PO Q8H PRN #20 capsule 10/23/19 Ipratropium [place] 2 spray NS BID PRN #1 spray 10/23/19 Montelukast Na [Singulair -] 10 mg PO DAILY #7 tablet 10/23/19 COPD: No Other medical history: DVT - Immunization History Immunization Up to Date: Yes - Psycho-Social/Smoking History Smoking History: Never smoked Have you smoked in the past 12 months: No Number of Cigarettes Smoked Daily: 8 If you are a former smoker, when did you quit?: 2019 - Substance Abuse Hx (Audit-C & DAST Scrn) How often the patient has a drink containing alcohol: Never Score: In Men: 4 or > Positive; In Women: 3 or > Positive: 0 Screen Result (Pos requires Nsg. Audit-10AR): Negative Review of Systems - Review of Systems Able to Perform ROS?: Yes Comments:: 07/30/20 07:41 GENERAL/CONSTITUTIONAL: No fever or chills. No weakness. HEAD, EYES, EARS, NOSE AND THROAT: No change in vision. No ear pain or discharge. No sore throat. CARDIOVASCULAR: No chest pain or shortness of breath RESPIRATORY: No cough, wheezing, or hemoptysis. GASTROINTESTINAL: No nausea, vomiting, diarrhea or constipation. GENITOURINARY: No dysuria, frequency, or change in urination. MUSCULOSKELETAL: LLE soreness. No other joint or muscle swelling or pain. No neck or back pain. SKIN: No rash NEUROLOGIC: No headache, vertigo, loss of consciousness, or change in strength/sensation. ENDOCRINE: No increased thirst. No abnormal weight change HEMATOLOGIC/LYMPHATIC: No anemia, easy bleeding, or history of blood clots. ALLERGIC/IMMUNOLOGIC: No hives or skin allergy. *Physical Exam - Vital Signs Last Vital Signs Temp Pulse Resp BP Pulse Ox 98.2 F 67 18 125/73 98 07/30/20 07:21 07/30/20 07:21 07/30/20 07:21 07/30/20 07:21 07/30/20 07:21 - Physical Exam 07/30/20 07:41 GENERAL: Awake, alert, and fully oriented, in no acute distress HEAD: No signs of trauma, normocephalic, atraumatic EYES: PERRLA, EOMI, sclera anicteric, conjunctiva clear ENT: Auricles normal inspection, hearing grossly normal, nares patent, oropharynx clear without exudates. Moist mucosa NECK: Normal ROM, supple, no lymphadenopathy, JVD, or masses LUNGS: No distress, speaks full sentences, clear to auscultation bilaterally HEART: Regular rate and rhythm, normal S1 and S2, no murmurs, rubs or gallops, peripheral pulses normal and equal bilaterally. ABDOMEN: Soft, nontender, normoactive bowel sounds. No guarding, no rebound. No masses EXTREMITIES : Normal inspection, Normal range of motion, no edema, nontender LLE. No clubbing or cyanosis NEUROLOGICAL: Cranial nerves II through XII grossly intact. Normal speech, normal gait, no focal sensorimotor deficits SKIN: Warm, Dry, normal turgor, no rashes or lesions noted Medical Decision Making - Medical Decision Making 07/30/20 07:41 44M w/hx prior DVT on ASA p/w acute episode of posterior LLE pain two days ago, intermittent since that time. Ddx MSK pain vs DVT, although no swelling or tenderness on exam. Plan: LLE Duplex US Dispo: Discharge 07/30/20 08:34 US - no DVT noted. Results discussed with patient. Plan for discharge with close PCP follow up. Discharge - Discharge Information Problems reviewed: Yes Clinical Impression/Diagnosis: Leg pain, posterior Qualifiers: Laterality: left Qualified Code(s): M79.605 - Pain in left leg Condition: Stable Disposition: HOME - Admission No - Follow up/Referral Referrals: Cheryl Landeros MD [Primary Care Provider] - - Patient Discharge Instructions Patient Printed Discharge Instructions: DI for Leg Pain Additional Instructions: You were seen in the ER for leg pain. Your ultrasound did not show any signs of blood clot. Follow up with your primary care physician as soon as possible, in the next 5-7 days. Return to the ER if you develop severe pain and swelling, or are unable to walk on the leg. Take acetaminophen as needed for pain control. - Post Discharge Activity Work/Back to School Note: Back to Work
[2020-07-30 07:46] VITALS: BP 125/73; PULSE 67; TEMP 98.2; BMI 28.8
--- OUTSIDE RECORDS SUMMARY | 2020-07-30 07:50 | XMS ---
:1975 Author Organization [facility] Support Name Relationship Address Phone [employer] Unavailable [place] [address] MARLINE PRECIADO [address] [place] [address] MARLINE MANCILLA [address] [phone] [place] [address] MARLINE POSEY Mother [address] [phone] [place] [address] Re-disclosure Warning The records that you are about to access may contain information from federally- assisted alcohol or drug abuse programs. If such information is present, then the following federally mandated warning applies: This information has been disclosed to you from records protected by federal confidentiality rules (42 CFR part 2). The federal rules prohibit you from making any further disclosure of this information unless further disclosure is expressly permitted by the written consent of the person to whom it pertains or as otherwise permitted by 42 CFR part 2. A general authorization for the release of medical or other information is NOT sufficient for this purpose. The Federal rules restrict any use of the information to criminally investigate or prosecute any alcohol or drug abuse patient.The records that you are about to access may contain highly sensitive health information, the redisclosure of which is protected by Article 27-F of the [facility] Public Health law. If you continue you may haveaccess to information: Regarding HIV / AIDS; Provided by facilities licensed or operated by the [facility] Office of Mental Health; or Provided by the [facility] Office for People With Developmental Disabilities. If such information is present, then the following [facility] mandated warning applies: This information has been disclosed to you from confidential records which are protected by state law. State law prohibits you from making any further disclosure of this information without the specific written consent of the person to whom it pertains, or as otherwise permitted by law. Any unauthorized further disclosure in violation of state law may result in a fine or long-term sentence or both. A general authorization for the release of medical or other information is NOT sufficient authorization for further disclosure. Insurance Providers Payer name Policy type Policy ID Covered Covered constitution party's Policy P rajendra / Coverage constitution party ID relationship to [place] Inf ormation type martinez [employer] HMO [id number] SP [id number] [employer] O [id number] SP [id number] SELF PAY INSURANCE
--- NOTE | 2020-07-30 08:56 | PDOC ---
Attending Attestation - Resident Resident Name: Albino Ivey - ED Attending Attestation I have performed the following: I have examined & evaluated the patient, The case was reviewed & discussed with the resident, I agree w/resident's findings & plan, Exceptions are as noted - HPI HPI: 07/30/20 08:56 Agree with resident HPI - Physicial Exam PE: 07/30/20 08:56 Agree with resident exam Negative capellan's test - Medical Decision Making 07/30/20 09:21 44yo M hx DVT presents to the ED with LLE calf pain, no direct trauma but +heavy lifting Vitals wnl Exam with minimal edema to calf, and mild ttp Distally NVI US negative for DVT No evidence of achillis rupture, negative capellan test Plan for outpt f/u with PMD Pt clincally stable for DC home I discussed the physical exam findings, ancillary test results and final diagnoses with the patient. I answered all of the patient's questions. The patient was satisfied with the care received and felt comfortable with the discharge plan and treatment plan. The patient will call their primary care physician within 24 hours to arrange follow-up and will return to the Emergency Department with any new, persistent or worsening symptoms. Discharge - Discharge Information Problems reviewed: Yes Clinical Impression/Diagnosis: Leg pain, posterior Qualifiers: Laterality: left Qualified Code(s): M79.605 - Pain in left leg Condition: Stable Disposition: HOME - Follow up/Referral Referrals: Cheryl Landeros MD [Primary Care Provider] - - Patient Discharge Instructions Patient Printed Discharge Instructions: DI for Leg Pain Additional Instructions: You were seen in the ER for leg pain. Your ultrasound did not show any signs of blood clot. Follow up with your primary care physician as soon as possible, in the next 5-7 days. Return to the ER if you develop severe pain and swelling, or are unable to walk on the leg. Take acetaminophen as needed for pain control. - Post Discharge Activity Work/Back to School Note: Back to Work
== END 2020-07-30 08:55 | disposition home or self-care (01) ==
LOC: JER 06:45
DX: M79.605 Pain in left leg (principal)
CPT/HCPCS: 93971-TC; 99284-25

== ENCOUNTER 2023-03-04 10:25 | Emergency (ER) | payer OTHER ==
[2023-03-04 10:29] VITALS: BP 127/66; PULSE 58; RESP 16; TEMP 98.3; BMI 28.0
[2023-03-04] MEDS ORDERED: ACETAMINOPHEN 325 MG TABLET (FP) PO ONE (11:31)
[2023-03-04] MEDS ORDERED: ACETAMINOPHEN 500 MG TABLET (FP) PO ONE (11:32)
[2023-03-04] MEDS ORDERED: ACETAMINOPHEN 500 MG TABLET (FP) ONE (11:33)
== END 2023-03-04 12:03 | disposition home or self-care (01) ==
LOC: JERFT 10:25
DX: S76.312A Strain of muscle, fascia and tendon of the posterior muscle group at thigh level, left thigh, initial encounter (principal); M79.652 Pain in left thigh; W01.0XXA Fall on same level from slipping, tripping and stumbling without subsequent striking against object, initial encounter; X50.1XXA Overexertion from prolonged static or awkward postures, initial encounter; Y93.I9 Activity, other involving external motion; Y99.0 Civilian activity done for income or pay
CPT/HCPCS: 99283-25